=== PATIENT | male | born 1960 | race Caucasian/White ===

== ENCOUNTER 2017-07-23 10:40 | Emergency (ER) | payer OTHER, MEDICARE ==
[~2017-07-23] VITALS: Ht 172.7 cm; Wt 92.1 kg
[~2017-07-23 10:40] MED LIST: ALBU8.5H6 IH; ASPI325T8 PO; HYDR10TA2 PO; PANT20TA58 PO; PROP10TA PO; SERT20OR; SIMV10TA3 PO; Soma
[2017-07-23] MEDS ORDERED: MVI, ADULT NO.4 WITH VIT K 10 ML, FOLIC ACID SYRINGE for ER 1 MG, THIAMINE 100 MG in IV... IV SCH ×4 (11:00)
[2017-07-23 11:17] LABS: BASO # 0.1 x10^3/uL (0.0-0.2); BASO % 1 % (0-3); EOS # 0.1 x10^3/uL (0.0-0.7); EOS % 1 % (0-3); HEMATOCRIT 42.3 % (39.0-53.0); HEMOGLOBIN 14.3 g/dL (13.0-17.5); LYMPH # 1.8 x10^3/uL (1.0-4.8); LYMPH % 22 % (24-48); MEAN CORPUSCULAR HEMOGLOBIN 30 pg (25-35); MEAN CORPUSCULAR HGB CONC 34 g/dL (31-37); MEAN CORPUSCULAR VOLUME 89 fL (79-100); MONO # 0.8 x10^3/uL (0.0-1.1); MONO % 9 % (0-9); NEUT # 5.4 x10^3uL (1.8-7.7); NEUT % 67 % (31-73); PLATELET COUNT 180 x10^3/uL (140-400); RED BLOOD COUNT 4.77 x10^6/uL (4.30-5.70); RED CELL DISTRIBUTION WIDTH 17.2 % (11.5-14.5); WHITE BLOOD COUNT 8.1 x10^3/uL (4.0-11.0)
[2017-07-23] MEDS ORDERED: MECL25TA3 PO (11:21)
--- NOTE | 2017-07-23 11:21 | PHYS DOC ---
Past History Past Medical History: Anxiety, COPD, Depression, Other Past Surgical History: Other Smoking: Less than 1pk/day Alcohol Use: Heavy Drug Use: None Adult General Chief Complaint Chief Complaint: ALCOHOL INTOXICATION HPI HPI Patient is a 56-year-old male who was brought to the ED from home by EMS. EMS reports that the patient was at his home and his social service worker came to check on him and found him to be very intoxicated, called 911. EMS was transporting [facility] to the [facility] but they were diverted because the [facility] said they did not have any beds. The patient reports that today he is supposed to be checking into the domiciliary. He was supposed to be there at 10. Patient states that he has pain all over his body but he does not have any pain that is new or different today. He does not actually even have any complaints. He did not participate in the decision to come to the ED and he does not particularly want to be here. Patient gets his medical care at the [facility]. Review of Systems Review of Systems Patient is intoxicated and not cooperative and was not able to participate with review of systems answers. Current Medications Current Medications Current Medications Medications (Trade) Dose Ordered Sig/Ron Start Time Stop Time Status Last Admin Dose Admin Multivitamins/ Minerals 10 ml/ Folic Acid 1 mg/ Thiamine HCl 100 mg/Sodium Chloride 1,011.2 ml @ 1,000 mls/ hr Q1H 07/23/17 11:00 Allergies Allergies Allergies Coded Allergies Type Severity Reaction Last Updated Verified Penicillins Allergy 08/01/13 Yes Physical Exam Physical Exam Constitutional: Well developed, well nourished, no acute distress, behaves as if intoxicated, smells of alcohol, is alert, verbal, speech is a bit slurred consistent with alcohol. Vital signs are stable. HENT: Normocephalic, atraumatic, bilateral external ears normal, oropharynx moist, no oral exudates, nose normal. [] Eyes: conjunctiva normal, no discharge. [] Neck: Normal range of motion, no stridor. [] Cardiovascular:Heart rate regular rhythm, no murmur [] Lungs & Thorax: Bilateral breath sounds clear to auscultation [] Abdomen: Bowel sounds normal, soft, no tenderness, no masses, no pulsatile masses. [] Skin: Warm, dry, no erythema, no rash. [] Extremities: No tenderness, no cyanosis, no clubbing, ROM intact, no edema. [] Neurologic: Alert and oriented X 3, normal motor function, no focal deficits noted. [] Current Patient Data Vital Signs Vital Signs Date Time Temp Pulse Resp B/P (MAP) Pulse Ox O2 Delivery O2 Flow Rate FiO2 07/23/17 10:55 97.2 95 18 90 Room Air EKG EKG [] Radiology/Procedures Radiology/Procedures [] Course & Med Decision Making Course & Med Decision Making Pertinent Labs and Imaging studies reviewed. (See chart for details) 56-year-old male brought from home by EMS with the complaint of intoxication. Patient tells me "I just want to " but he denies actual suicidal ideation or plan, he just feels that there is nothing that he can do for himself. He has made arrangements to check into the [facility] today at 10:00 and wants to go do that. He believes that the kind of helping needs. He has been there before. Patient rested in the ED, got a banana bag, and ate a box lunch. He behaved cooperatively when he woke up. Although the patient is depressed I don't believe he has active suicidal ideation, he denies wanting to hurt himself but just feels like he doesn't have anything left to live for. I don't believe he is entirely safe to be discharged to home without anyone helping her observing him, but I do feel that he would be safe to be discharged to the [facility] as he has been there before and feels like he would be safe in that situation. I asked ED nursing staff to contact them and see if we can make arrangements for that. ED nursing staff did talk to the staff at the [facility]. They were expecting the patient to come today and are okay with him being sent over there at this time. The patient was ambulated and he was able to walk unassisted. I do believe the patient is stable for transfer to the [facility] to be checked in as his plan was. We will get the patient a taxi. [] Dragon Disclaimer Dragon Disclaimer This electronic medical record was generated, in whole or in part, using a voice recognition dictation system. Departure Departure: Impression: Primary Impression: Acute alcohol intoxication Disposition: HOME, SELF-CARE Condition: IMPROVED Referrals: NON,STAFF (PCP) Additional Instructions: You are being released to go check in to the [facility]. You have agreed to go straight there and the taxi and be admitted. SHANNAN RAMIREZ MD Jul 23, 2017 11:21
[2017-07-23 11:52] LABS: ALBUMIN 3.1 g/dL (3.4-5.0); ALK PHOS 131 U/L (46-116); ALT (SGPT) 38 U/L (16-63); ANION GAP 9 (6-14); AST (SGOT) 35 U/L (15-37); BLOOD UREA NITROGEN 10 mg/dL (8-26); CARBON DIOXIDE 31 mmol/L (21-32); CHLORIDE 101 mmol/L (98-107); CREATININE 0.8 mg/dL (0.7-1.3); DIRECT BILIRUBIN < 0.1 mg/dL (0.0-0.2); GFR 99.3; GLUCOSE 196 mg/dL (70-99); MAGNESIUM 1.8 mg/dL (1.8-2.4); POTASSIUM 3.5 mmol/L (3.5-5.1); SODIUM 141 mmol/L (136-145); TOTAL BILIRUBIN 0.2 mg/dL (0.2-1.0)
[2017-07-23 12:35] VITALS: BP 120/22
== END 2017-07-23 13:11 | disposition home or self-care (01) ==
LOC: ER 10:40
DX: F10.129 Alcohol abuse with intoxication, unspecified (principal); F41.9 Anxiety disorder, unspecified; J44.9 Chronic obstructive pulmonary disease, unspecified; F32.9 Major depressive disorder, single episode, unspecified; F17.200 Nicotine dependence, unspecified, uncomplicated; Z88.0 Allergy status to penicillin
CPT/HCPCS: 36415; 80048; 80076; 83735; 85025; 85610; 85730; 96365; 99284; G0480; J7030

== ENCOUNTER 2017-11-22 19:07 | Inpatient (IN) | payer MEDICARE, OTHER ==
[~2017-11-22] VITALS: Ht 172.7 cm; Wt 90.9 kg
[~2017-11-22 19:07] MED LIST changes: +MECL25TA3 PO; +SERT100T; -SERT20OR
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
[2017-11-22] MEDS ORDERED: FAMOTIDINE 20 MG/2 ML VIAL ONE (19:40)
--- NOTE | 2017-11-22 19:45 | EKG ---
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
[2017-11-22 19:48] LABS: BASO % 0 % (0-3); EOS # 0.1 x10^3/uL (0.0-0.7); EOS % 2 % (0-3); HEMATOCRIT 39.7 % (39.0-53.0); HEMOGLOBIN 13.3 g/dL (13.0-17.5); LYMPH # 2.2 x10^3/uL (1.0-4.8); LYMPH % 30 % (24-48); MEAN CORPUSCULAR HEMOGLOBIN 29 pg (25-35); MEAN CORPUSCULAR HGB CONC 34 g/dL (31-37); MEAN CORPUSCULAR VOLUME 86 fL (79-100); MONO # 0.4 x10^3/uL (0.0-1.1); MONO % 6 % (0-9); NEUT # 4.4 x10^3uL (1.8-7.7); NEUT % 62 % (31-73); PLATELET COUNT 219 x10^3/uL (140-400); RED BLOOD COUNT 4.59 x10^6/uL (4.30-5.70); RED CELL DISTRIBUTION WIDTH 15.7 % (11.5-14.5); WHITE BLOOD COUNT 7.1 x10^3/uL (4.0-11.0)
[2017-11-22 19:57] LABS: ALBUMIN 3.3 g/dL (3.4-5.0); CALCIUM 8.6 mg/dL (8.5-10.1); DIRECT BILIRUBIN 0.1 mg/dL (0.0-0.2); GFR 76.5; MAGNESIUM 1.8 mg/dL (1.8-2.4); TOTAL BILIRUBIN 0.4 mg/dL (0.2-1.0); TOTAL PROTEIN 7.2 g/dL (6.4-8.2)
[2017-11-22 20:00] LABS: ACETAMIN < 2 mcg/mL (10-30); ETHANOL 349 mg/dL (0-10); POTASSIUM 2.8 mmol/L (3.5-5.1); SALIC 4.4 mg/dL (2.8-20.0)
[2017-11-22] MEDS ORDERED: MVI, ADULT NO.4 WITH VIT K 10 ML, FOLIC ACID SYRINGE for ER 1 MG, THIAMINE 100 MG in IV... IV SCH ×4 (20:00)
[2017-11-22] MEDS ORDERED: OLANZapine IM 10 MG VIAL. IM ONE (20:00)
[2017-11-22] MEDS ORDERED: diphenhydrAMINE 50 MG/ML VIAL IV ONE ×2 (20:00)
[2017-11-22] MEDS ORDERED: TETANUS AND DIPHTHERIA TOX/PF 0.5 ML VIAL. VAX IM ONE (20:00)
[2017-11-22] MEDS ORDERED: POTASSIUM CHLORIDE 20 MEQ/15 ML ORAL LIQUID. PO STA (20:08)
[2017-11-22] MEDS ORDERED: THIAMINE 200 MG/2 ML VIAL. IV ONE (20:10)
[2017-11-22] MEDS ORDERED: MVI, ADULT NO.4 WITH VIT K 10 ML VIAL IV ONE (20:10)
[2017-11-22] MEDS ORDERED: FOLIC ACID 5 MG/ML SYRINGE for ER IV ONE (20:11)
[2017-11-22] MEDS ORDERED: LORazepam 2 MG/ML VIAL IV PRN (20:30)
[2017-11-22] MEDS ORDERED: MAGNESIUM HYDROXIDE 2,400 MG/30 ML ORAL.SUSP. PO ONE (20:30)
[2017-11-22] MEDS ORDERED: MIDAZOLAM HCL PF 5 MG/5 ML VIAL. ONE (20:54)
[2017-11-22] MEDS ORDERED: IV RINGERS SOLUTION,LACTATED 1,000 ML IV SCH (21:00)
[2017-11-22] MEDS ORDERED: FAMOTIDINE 20 MG/2 ML VIAL IVP ONE (21:00)
[2017-11-22] MEDS: LORazepam 1 MG TABLET PO SCH (21:00)
[2017-11-22] MEDS ORDERED: LORazepam 2 MG/ML VIAL IV ONE (21:15)
[2017-11-22] MEDS ORDERED: POTASSIUM CHLORIDE 20MEQ 100 ML IV ONE (21:51)
--- NOTE | 2017-11-22 21:52 | RAD ---
CT head and cervical spine without contrast History: Fall Technique: Noncontrast CT imaging was performed of the head and cervical spine. Multiplanar reconstruction images are submitted. Exposure: One or more of the following individualized dose reduction techniques were utilized for this examination: 1. Automated exposure control 2. Adjustment of the mA and/or kV according to patient size 3. Use of iterative reconstruction technique. Head CT Comparison: None Findings: No acute extra-axial or parenchymal hemorrhage is identified. There is no significant intra-axial mass effect, midline shift, or extra-axial fluid collection. There is small area of encephalomalacia in the right occipital lobe with cortical involvement likely due to previous infarct. There is also small focus of encephalomalacia with cortical involvement of the right frontal lobe. There is a larger area of encephalomalacia of the left parasagittal frontal parietal lobes and cingulate gyrus likely due to previous infarct. The lowry-white differentiation of the major vascular territories is preserved. Ventricular size is within normal limits. There is mild supratentorial involutional change. The mastoid air cells and the visualized paranasal sinuses are aerated. There is no significant focal calvarial abnormality. Impression: 1. There is no evidence of acute intracranial hemorrhage. There are foci of encephalomalacia as stated likely due to sequela of old infarcts. Cervical spine CT Comparison: None Findings: There is motion degradation. No convincing acute cervical spine fracture is identified allowing for motion. Vertebral body stature is maintained. There is negligible anterior spondylolisthesis C3-C4. Atlanto-axial distance is within normal limits, associated degenerative change. There is appropriate alignment of lateral masses of C1 relative to C2. Occipital condylar-C1 relationship is maintained. There is more advanced degenerative disc disease C6-7 and to lesser degree at C5-C6 and minimally at C3-4 and C4-5. There is multilevel cervical facet degenerative change. Disc osteophyte complex likely contributes to borderline/mild spinal stenosis C6-7. There is severe narrowing of the left C6-7 neural foramen mostly from uncovertebral degenerative change. There is some atherosclerotic calcification of the carotid arteries in the neck bilaterally. Impression: 1. There is some motion degradation, no convincing acute cervical spine fracture identified allowing for motion. 2. There is multilevel degenerative disease and spondylosis greatest C6-7, also likely borderline/mild spinal stenosis at this level. There is also severe narrowing of the left C6-7 neural foramen due to uncovertebral degenerative change. Electronically signed by: Agustin Chiu MD (11/22/2017 9:49 PM) [facility]
--- NOTE | 2017-11-22 22:04 | RAD ---
PORTABLE CHEST 1V Clinical History: Fall Technique: AP view of the chest was obtained at 11/22/2017 7:22 PM. Comparison: August 01, 2013. Findings: The heart is top normal limits in size. The pulmonary vasculature is normal. The lungs and pleural margins are clear. Impression: No evidence of an acute cardiopulmonary process. Electronically signed by: Jose Betancur III, MD (11/22/2017 10:01 PM) [facility]
--- NOTE | 2017-11-22 22:12 | RAD ---
CT maxillofacial without contrast History: Facial injury Axial helical images of the face were obtained without contrast. Axial and coronal reconstruction was performed. The nasal septum is mildly deviated to the right. The ostiomeatal complexes are narrow but patent. There is mild fluid within the ethmoid air cells and frontal sinus on the left.. The visualized osseous structures appear intact. The orbits appear normal. Impression: No acute bony abnormality. PQRS Compliance Statement: One or more of the following individualized dose reduction techniques were utilized for this examination: 1. Automated exposure control 2. Adjustment of the mA and/or kV according to patient size 3. Use of iterative reconstruction technique Electronically signed by: Jose Betancur III, MD (11/22/2017 10:09 PM) [facility]
[2017-11-22] MEDS ORDERED: POTASSIUM CHLORIDE 40 MEQ in IV RINGERS SOLUTION,LACTATED 1,000 ML IV SCH (22:30)
[2017-11-22 23:22] VITALS: BP 158/89
[2017-11-23 02:52] VITALS: BP 119/82
[2017-11-23] MEDS: IV RINGERS SOLUTION,LACTATED 1,000 ML IV SCH ×4 (03:01→22:45)
[2017-11-23 04:43] LABS: BARBITURATES NEG (NEG); BENZODIAZEPINES NEG (NEG); CANNABINOIDS NEG (NEG); COCAINE NEG (NEG); METHADONE NEG (NEG); OPIATES NEG (NEG); PHENCYCLIDINE NEG (NEG)
[2017-11-23 04:44] LABS: BACTERIA,URINE FEW /HPF (0-FEW); BILIRUBIN,URINE NEG (NEG); CLARITY,URINE CLEAR; COLOR,URINE YELLOW; GLUCOSE,URINE NEG (NEG); NITRITE,URINE NEG (NEG); RBC,URINE OCC /HPF (0-2); SQUAMOUS EPITHELIAL CELL,UR OCC /LPF; UROBILINOGEN,URINE 0.2 mg/dL (0.2 mg/dL); WBC,URINE OCC /HPF (0-4)
[2017-11-23 04:45] LABS: AMPHETAMINE/METHAMPHETAMINE NEG (NEG)
[2017-11-23 05:41] VITALS: BP 134/81
[2017-11-23] MEDS: POTASSIUM CHLORIDE 20 MEQ/15 ML ORAL LIQUID. PO SCH (05:57)
[2017-11-23 07:12] LABS: BASO % 0 % (0-3); EOS # 0.1 x10^3/uL (0.0-0.7); EOS % 1 % (0-3); HEMATOCRIT 36.9 % (39.0-53.0); HEMOGLOBIN 12.3 g/dL (13.0-17.5); LYMPH # 1.6 x10^3/uL (1.0-4.8); LYMPH % 20 % (24-48); MEAN CORPUSCULAR HEMOGLOBIN 29 pg (25-35); MEAN CORPUSCULAR HGB CONC 34 g/dL (31-37); MEAN CORPUSCULAR VOLUME 88 fL (79-100); MONO # 0.4 x10^3/uL (0.0-1.1); MONO % 5 % (0-9); NEUT # 5.9 x10^3uL (1.8-7.7); NEUT % 74 % (31-73); PLATELET COUNT 174 x10^3/uL (140-400); RED BLOOD COUNT 4.21 x10^6/uL (4.30-5.70); RED CELL DISTRIBUTION WIDTH 16.3 % (11.5-14.5)
[2017-11-23 07:16] LABS: GFR 76.5; POTASSIUM 3.5 mmol/L (3.5-5.1)
[2017-11-23] MEDS: LORazepam 1 MG TABLET PO SCH ×4 (08:56→20:44)
[2017-11-23] MEDS: FAMOTIDINE 20 MG TABLET PO SCH (08:56)
[2017-11-23] MEDS: MVI, ADULT NO.4 WITH VIT K 10 ML, FOLIC ACID 1 MG, THIAMINE 100 MG in IV NORMAL SALINE ... IV SCH ×4 (09:04)
[2017-11-23 11:19] VITALS: BP 143/73
[2017-11-23] MEDS ORDERED: LORazepam 1 MG TABLET PO PRN (12:45)
[2017-11-23] MEDS ORDERED: ENOXAPARIN 40 MG/0.4 ML SYRINGE. SQ SCH (13:00)
[2017-11-23] MEDS ORDERED: DEXTROSE 50% 25 GM / 50ML DISP.SYRIN. IV PRN (13:00)
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
[2017-11-23] MEDS ORDERED: PROP40TA PO (15:20)
[2017-11-23] MEDS ORDERED: ACET325T9 PO (15:20)
[2017-11-23] MEDS ORDERED: GABA800T2 PO (15:20)
[2017-11-23] MEDS ORDERED: APIX5TAB3 PO (15:20)
[2017-11-23] MEDS ORDERED: BUSP5TAB PO (15:20)
[2017-11-23] MEDS ORDERED: METF500T5 PO (15:20)
[2017-11-23] MEDS ORDERED: HYDR25CA75 PO (15:20)
[2017-11-23] MEDS ORDERED: ACETAMINOPHEN 325 MG TABLET PO PRN (15:45)
[2017-11-23 16:00] VITALS: BP 169/86
[2017-11-23] MEDS ORDERED: busPIRone 5 MG TABLET. PO SCH (16:00)
[2017-11-23] MEDS: INSULIN LISPRO 300 UNITS/3 ML INSULN.PEN. SQ SCH (17:00)
[2017-11-23] MEDS ORDERED: NON FORMULARY ITEM (Apixaban (Eliquis) 5 MG) PO SCH (18:00)
[2017-11-23 19:00] VITALS: BP 144/81
--- NOTE | 2017-11-23 20:27 | PDOC ---
Exam Note: [place] Note: Please also refer to the separate dictated note~for this date of service dictated separately.~Patient seen individually. Discussed the patient with Nursing staff reviewed the chart.~Reviewed interim history and current functioning. Reviewed vital signs,~Labs/ Radiology~and current medications noted below. Continue current treatment with the changes noted in the dictated addendum note Assessment: Vital Signs: Vital Signs Date Time Temp Pulse Resp B/P (MAP) Pulse Ox O2 Delivery O2 Flow Rate FiO2 11/23/17 19:00 100 20 144/81 (102) 90 11/23/17 16:00 98.7 Room Air 11/23/17 11:09 2.0 I&O Intake and Output 11/23/17 07:00 Intake Total 2055.1 ml Output Total 500 ml Balance 1555.1 ml Intake Oral 120 ml IV Total 1935.1 ml Output Urine Total 500 ml Labs: Laboratory Tests Test 11/23/17 04:00 11/23/17 06:16 Urine Collection Type Unknown Urine Color Yellow Urine Clarity Clear Urine pH 6.0 Urine Specific [facility] 1.015 Urine Protein 30 mg/dl (NEG-TRACE) Urine Glucose (UA) Neg mg/dL (NEG) Urine Ketones (Stick) Neg mg/dL (NEG) Urine Blood Trace (NEG) Urine Nitrite Neg (NEG) Urine Bilirubin Neg (NEG) Urine Urobilinogen Dipstick 0.2 mg/dL (0.2 mg/dL) Urine Leukocyte Esterase Neg (NEG) Urine RBC Occ /HPF (0-2) Urine WBC Occ /HPF (0-4) Urine Squamous Epithelial Cells Occ /LPF Urine Bacteria Few /HPF (0-FEW) Urine Mucus Slight /LPF Urine Opiates Screen Neg (NEG) Urine Methadone Screen Neg (NEG) Urine Barbiturates Neg (NEG) Urine Phencyclidine Screen Neg (NEG) Urine Amphetamine/Methamphetamine Neg (NEG) Urine Benzodiazepines Screen Neg (NEG) Urine Cocaine Screen Neg (NEG) Urine Cannabinoids Screen Neg (NEG) Urine Ethyl Alcohol Pos (NEG) White Blood Count 8.0 x10^3/uL (4.0-11.0) Red Blood Count 4.21 x10^6/uL (4.30-5.70) L Hemoglobin 12.3 g/dL (13.0-17.5) L Hematocrit 36.9 % (39.0-53.0) L Mean Corpuscular Volume 88 fL (79-100) Mean Corpuscular Hemoglobin 29 pg (25-35) Mean Corpuscular Hemoglobin Concent 34 g/dL (31-37) Red Cell Distribution Width 16.3 % (11.5-14.5) H Platelet Count 174 x10^3/uL (140-400) Neutrophils (%) (Auto) 74 % (31-73) H Lymphocytes (%) (Auto) 20 % (24-48) L Monocytes (%) (Auto) 5 % (0-9) Eosinophils (%) (Auto) 1 % (0-3) Basophils (%) (Auto) 0 % (0-3) Neutrophils # (Auto) 5.9 x10^3uL (1.8-7.7) Lymphocytes # (Auto) 1.6 x10^3/uL (1.0-4.8) Monocytes # (Auto) 0.4 x10^3/uL (0.0-1.1) Eosinophils # (Auto) 0.1 x10^3/uL (0.0-0.7) Basophils # (Auto) 0.0 x10^3/uL (0.0-0.2) Sodium Level 140 mmol/L (136-145) Potassium Level 3.5 mmol/L (3.5-5.1) Chloride Level 103 mmol/L (98-107) Carbon Dioxide Level 29 mmol/L (21-32) Anion Gap 8 (6-14) Blood Urea Nitrogen 9 mg/dL (8-26) Creatinine 1.0 mg/dL (0.7-1.3) Estimated GFR (Cockcroft-Gault) 76.5 Glucose Level 162 mg/dL (70-99) H Calcium Level 8.0 mg/dL (8.5-10.1) L Current Medications: Meds: Current Medications Multivitamins/ Minerals 10 ml/ Folic Acid 1 mg/ Thiamine HCl 100 mg/Sodium Chloride 1,011.2 ml @ 1,000 mls/ hr Q1H IV Last administered on 11/22/17at 20:00 ; Start 11/22/17 at 20:00; Stop 11/22/17 at 20:23; Status DC Diphenhydramine HCl (Benadryl) 50 mg 1X ONCE IV Last administered on 11/22/17at 20:23; Start 11/22/17 at 20:00; Stop 11/22/17 at 20:01; Status DC Tetanus/ Diphtheria Toxoids Adsorbed (Tenivac Vial) 0.5 ml ONCE ONCE VAX IM Last administered on 11/22/17at 20:22; Start 11/22/17 at 20:00; Stop 11/22/17 at 20: 01; Status DC Diphenhydramine HCl (Benadryl) 50 mg 1X ONCE IV ; Start 11/22/17 at 20:00; Stop 11/22/17 at 20:01; Status DC Olanzapine (ZyPREXA IM) 10 mg 1X ONCE IM Last administered on 11/22/17at 20:20; Start 11/22/17 at 20:00; Stop 11/22/17 at 20:01; Status DC Multivitamins/ Minerals 10 ml/ Folic Acid 1 mg/ Thiamine HCl 100 mg/Sodium Chloride 1,011.1 ml @ 1,000 mls/ hr DAILY IV Last administered on 11/23/17at 09: 04; Start 11/23/17 at 09:00; Stop 11/25/17 at 10:01 Lactated Ringer's 1,000 ml @ 160 mls/hr Q6H15M IV ; Start 11/22/17 at 21:00; Status Cancel Famotidine (Pepcid Vial) 20 mg 1X ONCE IVP Last administered on 11/22/17at 20:19 ; Start 11/22/17 at 21:00; Stop 11/22/17 at 21:01; Status DC Potassium Chloride (KCl Oral Soln) 40 meq 1X STAT PO ; Start 11/22/17 at 20:08; Stop 11/22/17 at 20:18; Status DC Potassium Chloride (KCl Oral Soln) 40 meq DAILY06 PO Last administered on at 05:57; Start 11/23/17 at 06:00 Famotidine (Pepcid) 20 mg DAILY PO Last administered on 11/23/17at 08:56; Start 11/23/17 at 09:00 Magnesium Hydroxide (Milk Of Magnesia) 2,400 mg 1X ONCE PO ; Start 11/22/17 at 20:30; Stop 11/22/17 at 20:31; Status DC Lorazepam (Ativan) 1 mg QID PO Last administered on 11/23/17at 17:24; Start at 21:00 Lorazepam (Ativan) 2 mg 1X PRN PRN IV seizure; Start 11/22/17 at 20:30; Stop 11/23/17 at 12:46; Status DC Lorazepam (Ativan) 2 mg 1X ONCE IV Last administered on 11/22/17at 21:02; Start 11/22/17 at 21:15; Stop 11/22/17 at 21:16; Status DC Potassium Chloride 40 meq/ Lactated Ringer's 1,020 ml @ 160 mls/hr Q6H23M IV Last administered on 11/22/17at 23:25; Start 11/22/17 at 22:30; Stop 11/23/17 at 04: 52; Status DC Lactated Ringer's 1,000 ml @ 160 mls/hr Q6H15M IV Last administered on at 14:00; Start 11/23/17 at 04:00 Multivitamins/ Minerals 10 ml/ Thiamine HCl 100 mg/Folic Acid 1 mg/Sodium Chloride 1,011.2 ml @ 100 mls/ hr DAILY IV ; Start 11/24/17 at 09:00; Stop 11/29 at 08:59; Status UNV Chlordiazepoxide (Librium) 50 mg PRN Q1HR PRN PO For CIWA 8-14; Start 11/23/17 at 12:45 Lorazepam (Ativan) 4 mg PRN Q1HR PRN PO For CIWA 8-14; Start 11/23/17 at 12:45 Lorazepam (Ativan) 2 mg PRN Q1HR PRN IV For CIWA 8-14; Start 11/23/17 at 12:45 Enoxaparin Sodium (Lovenox 40mg Syringe) 40 mg Q24H SQ Last administered on 11/23at 14:00; Start 11/23/17 at 13:00; Stop 11/23/17 at 18:14; Status DC Insulin Human Lispro (HumaLOG) 0-5 UNITS TIDWMEALS SQ ; Start 11/23/17 at 17:00 Dextrose 12.5 gm PRN Q15MIN PRN IV SEE COMMENTS; Start 11/23/17 at 13:00 Acetaminophen (Tylenol) 650 mg PRN Q4HRS PRN PO PAIN / TEMP; Start 11/23/17 at 15:45 Non-Formulary Medication (Apixaban (Eliquis)) 5 mg QEVNG PO ; Start 11/23/17 at 18:00; Stop 11/23/17 at 18:00; Status DC Buspirone HCl (Buspar) 5 mg BID PO ; Start 11/23/17 at 16:00; Stop 11/23/17 at 16: 00; Status DC Gabapentin (Neurontin) 800 mg BID PO ; Start 11/23/17 at 21:00 Hydroxyzine Pamoate (Vistaril) 25 mg PRN TID PRN PO ANXIETY/AGITATION; Start at 15:45 Metformin HCl (Glucophage) 500 mg QEVNG PO ; Start 11/23/17 at 18:00 Propranolol HCl (Inderal) 40 mg BID PO ; Start 11/23/17 at 21:00 Buspirone HCl (Buspar) 5 mg BID PO ; Start 11/23/17 at 21:00 Apixaban (Eliquis) 5 mg BID PO ; Start 11/24/17 at 09:00 Active Scripts Active Reported Propranolol Hcl 40 Mg Tablet 40 Mg PO BID Metformin Hcl 500 Mg Tablet 500 Mg PO QEVNG Hydroxyzine Pamoate 25 Mg Capsule 25 Mg PO PRN TID PRN Gabapentin 800 Mg Tablet 800 Mg PO BID Buspirone Hcl 5 Mg Tablet 5 Mg PO BID Tylenol (Acetaminophen) 325 Mg Tablet 650 Mg PO PRN Q4HRS PRN [Soma] I have reviewed the current psychotropics carefully including drug interactions. Risk benefit ratio favors no change other than as noted in my dictated progress note. Diagnosis: Problems: (1) Alcohol dependence (2) Anxiety disorder (3) Major depressive disorder, recurrent episode (4) Suicidal ideations CALLIE YANES MD Nov 23, 2017 20:27
[2017-11-23] MEDS: busPIRone 5 MG TABLET. PO SCH (20:44)
[2017-11-23] MEDS: GABAPENTIN 400 MG CAPSULE. PO SCH (20:44)
[2017-11-23] MEDS: metFORMIN 500 MG TABLET PO SCH (20:44)
[2017-11-23] MEDS: PROPRANOLOL 20 MG TABLET. PO SCH (20:44)
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
[2017-11-23] MEDS: ONDANSETRON PF 4 MG/2 ML VIAL. IV PRN (21:21)
[2017-11-23 23:00] VITALS: BP 144/81
[2017-11-24] MEDS: hydrOXYzine PAMOATE 25 MG CAPSULE PO PRN ×2 (01:08→19:58)
[2017-11-24] MEDS: LORazepam 2 MG/ML VIAL IV PRN ×13 (01:56→23:27)
[2017-11-24] MEDS: chlordiazePOXIDE HCL 25 MG CAPSULE PO PRN ×6 (02:38→17:37)
[2017-11-24] MEDS: IV RINGERS SOLUTION,LACTATED 1,000 ML IV SCH ×2 (05:00→11:15)
[2017-11-24] MEDS ORDERED: HALOPERIDOL LACT 5 MG/ML VIAL. ONE ×2 (05:55→16:09)
[2017-11-24 06:00] VITALS: BP_SYST 179; BP_SYST 190; BP_DIAS 88; BP_DIAS 96
[2017-11-24] MEDS ORDERED: HALOPERIDOL LACT 5 MG/ML VIAL. IVP ONE (06:30)
[2017-11-24 06:33] LABS: HEMATOCRIT 34.6 % (39.0-53.0); HEMOGLOBIN 11.6 g/dL (13.0-17.5); RED CELL DISTRIBUTION WIDTH 15.6 % (11.5-14.5); WHITE BLOOD COUNT 6.1 x10^3/uL (4.0-11.0)
[2017-11-24 07:04] LABS: ALBUMIN/GLOBULIN RATIO 0.9 (1.0-1.7); CREATININE 0.9 mg/dL (0.7-1.3); GFR 86.4; POTASSIUM 3.4 mmol/L (3.5-5.1); TOTAL PROTEIN 6.2 g/dL (6.4-8.2)
[2017-11-24] MEDS: INSULIN LISPRO 300 UNITS/3 ML INSULN.PEN. SQ SCH ×3 (08:00→17:52)
[2017-11-24] MEDS: APIXABAN 5 MG TABLET. PO SCH ×2 (08:47→19:57)
[2017-11-24] MEDS: FAMOTIDINE 20 MG TABLET PO SCH (08:47)
[2017-11-24] MEDS: busPIRone 5 MG TABLET. PO SCH ×2 (08:47→19:59)
[2017-11-24] MEDS: LORazepam 1 MG TABLET PO SCH ×4 (08:47→20:00)
[2017-11-24] MEDS: GABAPENTIN 400 MG CAPSULE. PO SCH ×2 (08:48→19:58)
[2017-11-24] MEDS: NICOTINE 21MG PATCH. TD SCH (08:49)
[2017-11-24 08:56] VITALS: BP 141/87
[2017-11-24] MEDS: PROPRANOLOL 20 MG TABLET. PO SCH ×2 (08:56→20:01)
[2017-11-24] MEDS ORDERED: MVI, ADULT NO.4 WITH VIT K 10 ML, THIAMINE 100 MG, FOLIC ACID 1 MG in IV NORMAL SALINE ... IV SCH ×4 (09:00)
[2017-11-24] MEDS: MVI, ADULT NO.4 WITH VIT K 10 ML, FOLIC ACID 1 MG, THIAMINE 100 MG in IV NORMAL SALINE ... IV SCH ×4 (09:00)
[2017-11-24] MEDS: POTASSIUM CHLORIDE 20 MEQ/15 ML ORAL LIQUID. PO SCH (11:39)
[2017-11-24] MEDS ORDERED: MAG HYDROX/AL HYDROX/SIMETH 30 ML ORAL.SUSP ONE (12:32)
[2017-11-24 12:33] VITALS: BP 180/77
[2017-11-24] MEDS: MAG HYDROX/AL HYDROX/SIMETH 30 ML ORAL.SUSP PO PRN (12:38)
[2017-11-24] MEDS: POTASSIUM CL 40MEQ D5-0.45NACL 1,000 ML IV SCH ×2 (13:59→23:26)
[2017-11-24] MEDS ORDERED: chlordiazePOXIDE HCL 25 MG CAPSULE PO PRN (14:00)
[2017-11-24 14:56] VITALS: BP 167/97
[2017-11-24] MEDS ORDERED: HALOPERIDOL LACT 5 MG/ML VIAL. IVP PRN (16:30)
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
[2017-11-24] MEDS: metFORMIN 500 MG TABLET PO SCH (17:40)
[2017-11-24 20:11] VITALS: BP 149/91
[2017-11-24] MEDS ORDERED: IPRATRPIUM/ALBUTEROL 0.5/2.5MG 3 ML NEBU. NEB ONE (21:30)
[2017-11-24 22:58] VITALS: BP 146/94
[2017-11-24] MEDS: HALOPERIDOL LACT 5 MG/ML VIAL. IVP PRN (23:26)
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
[2017-11-25] MEDS: POTASSIUM CHLORIDE 20 MEQ/15 ML ORAL LIQUID. PO SCH (05:30)
[2017-11-25 06:26] LABS: ALBUMIN 2.8 g/dL (3.4-5.0); ALBUMIN/GLOBULIN RATIO 0.8 (1.0-1.7); CALCIUM 8.4 mg/dL (8.5-10.1); CREATININE 0.8 mg/dL (0.7-1.3); GFR 98.9; POTASSIUM 3.9 mmol/L (3.5-5.1); TOTAL BILIRUBIN 0.5 mg/dL (0.2-1.0); TOTAL PROTEIN 6.5 g/dL (6.4-8.2)
[2017-11-25 06:29] VITALS: BP 157/114
[2017-11-25] MEDS ORDERED: cloNIDine HCL 0.1 MG TABLET PO PRN (06:45)
[2017-11-25] MEDS: GABAPENTIN 400 MG CAPSULE. PO SCH ×2 (07:49→20:39)
[2017-11-25] MEDS: LORazepam 1 MG TABLET PO SCH ×4 (07:49→20:39)
[2017-11-25] MEDS: busPIRone 5 MG TABLET. PO SCH ×2 (07:49→20:39)
[2017-11-25] MEDS: FAMOTIDINE 20 MG TABLET PO SCH (07:49)
[2017-11-25] MEDS: PROPRANOLOL 20 MG TABLET. PO SCH ×2 (07:49→20:39)
[2017-11-25] MEDS: NICOTINE 21MG PATCH. TD SCH (07:50)
[2017-11-25] MEDS: APIXABAN 5 MG TABLET. PO SCH ×2 (07:50→20:39)
[2017-11-25] MEDS: INSULIN LISPRO 300 UNITS/3 ML INSULN.PEN. SQ SCH ×3 (07:53→16:57)
[2017-11-25] MEDS ORDERED: IPRATRPIUM/ALBUTEROL 0.5/2.5MG 3 ML NEBU. ONE (08:22)
[2017-11-25] MEDS: IPRATRPIUM/ALBUTEROL 0.5/2.5MG 3 ML NEBU. NEB SCH ×4 (08:26→20:38)
[2017-11-25] MEDS: chlordiazePOXIDE HCL 25 MG CAPSULE PO PRN (09:25)
--- NOTE | 2017-11-25 09:52 | RAD ---
Portable chest, 11/25/2017: HISTORY: Wheezing, shortness of breath Comparison is made to a study from 11/22/2017. The heart size and pulmonary vascularity are normal. No pulmonary infiltrate is seen. There is no evidence of pleural fluid. IMPRESSION: No acute cardiopulmonary abnormality is detected. Electronically signed by: Jose Harvey MD (11/25/2017 9:49 AM) [facility]
[2017-11-25 10:53] VITALS: BP 153/87
[2017-11-25 14:51] VITALS: BP 141/87
[2017-11-25] MEDS: POTASSIUM CL 40MEQ D5-0.45NACL 1,000 ML IV SCH (16:23)
[2017-11-25] MEDS: metFORMIN 500 MG TABLET PO SCH (16:58)
[2017-11-25] MEDS: LORazepam 2 MG/ML VIAL IV PRN (17:44)
[2017-11-25] MEDS: HALOPERIDOL LACT 5 MG/ML VIAL. IVP PRN (18:00)
--- NOTE | 2017-11-25 18:35 | PDOC ---
Exam Note: [place] Note: Please also refer to the separate dictated note~for this date of service dictated separately.~Patient seen individually. Discussed the patient with Nursing staff reviewed the chart.~Reviewed interim history and current functioning. Reviewed vital signs,~Labs/ Radiology~and current medications noted below. Continue current treatment with the changes noted in the dictated addendum note Assessment: Vital Signs: Vital Signs Date Time Temp Pulse Resp B/P (MAP) Pulse Ox O2 Delivery O2 Flow Rate FiO2 11/25/17 15:18 91 Nasal Cannula 2.5 11/25/17 14:51 98.4 96 22 141/87 (105) I&O Intake and Output 11/25/17 07:00 Intake Total 3245 ml Output Total 500 ml Balance 2745 ml Intake Oral 120 ml IV Total 3125 ml Output Urine Total 500 ml # Voids 3 # Bowel Movements 1 Labs: Laboratory Tests Test 11/24/17 20:29 11/25/17 06:00 11/25/17 13:57 11/25/17 16:27 Glucose (Fingerstick) 192 mg/dL (70-99) H 182 mg/dL (70-99) H 167 mg/dL (70-99) H Sodium Level 144 mmol/L (136-145) Potassium Level 3.9 mmol/L (3.5-5.1) Chloride Level 107 mmol/L (98-107) Carbon Dioxide Level 32 mmol/L (21-32) Anion Gap 5 (6-14) L Blood Urea Nitrogen 3 mg/dL (8-26) L Creatinine 0.8 mg/dL (0.7-1.3) Estimated GFR (Cockcroft-Gault) 98.9 BUN/Creatinine Ratio 4 (6-20) L Glucose Level 186 mg/dL (70-99) H Calcium Level 8.4 mg/dL (8.5-10.1) L Total Bilirubin 0.5 mg/dL (0.2-1.0) Aspartate Amino Transferase (AST) 33 U/L (15-37) Alanine Aminotransferase (ALT) 37 U/L (16-63) Alkaline Phosphatase 121 U/L (46-116) H Creatine Kinase 211 U/L (39-308) Total Protein 6.5 g/dL (6.4-8.2) Albumin 2.8 g/dL (3.4-5.0) L Albumin/Globulin Ratio 0.8 (1.0-1.7) L Current Medications: Meds: Current Medications Multivitamins/ Minerals 10 ml/ Folic Acid 1 mg/ Thiamine HCl 100 mg/Sodium Chloride 1,011.2 ml @ 1,000 mls/ hr Q1H IV Last administered on 11/22/17at 20:00 ; Start 11/22/17 at 20:00; Stop 11/22/17 at 20:23; Status DC Diphenhydramine HCl (Benadryl) 50 mg 1X ONCE IV Last administered on 11/22/17at 20:23; Start 11/22/17 at 20:00; Stop 11/22/17 at 20:01; Status DC Tetanus/ Diphtheria Toxoids Adsorbed (Tenivac Vial) 0.5 ml ONCE ONCE VAX IM Last administered on 11/22/17at 20:22; Start 11/22/17 at 20:00; Stop 11/22/17 at 20: 01; Status DC Diphenhydramine HCl (Benadryl) 50 mg 1X ONCE IV ; Start 11/22/17 at 20:00; Stop 11/22/17 at 20:01; Status DC Olanzapine (ZyPREXA IM) 10 mg 1X ONCE IM Last administered on 11/22/17at 20:20; Start 11/22/17 at 20:00; Stop 11/22/17 at 20:01; Status DC Multivitamins/ Minerals 10 ml/ Folic Acid 1 mg/ Thiamine HCl 100 mg/Sodium Chloride 1,011.1 ml @ 1,000 mls/ hr DAILY IV Last administered on 11/23/17at 09: 04; Start 11/23/17 at 09:00; Stop 11/24/17 at 13:50; Status DC Lactated Ringer's 1,000 ml @ 160 mls/hr Q6H15M IV ; Start 11/22/17 at 21:00; Status Cancel Famotidine (Pepcid Vial) 20 mg 1X ONCE IVP Last administered on 11/22/17at 20:19 ; Start 11/22/17 at 21:00; Stop 11/22/17 at 21:01; Status DC Potassium Chloride (KCl Oral Soln) 40 meq 1X STAT PO ; Start 11/22/17 at 20:08; Stop 11/22/17 at 20:18; Status DC Potassium Chloride (KCl Oral Soln) 40 meq DAILY06 PO Last administered on at 05:30; Start 11/23/17 at 06:00 Famotidine (Pepcid) 20 mg DAILY PO Last administered on 11/25/17at 07:49; Start 11/23/17 at 09:00 Magnesium Hydroxide (Milk Of Magnesia) 2,400 mg 1X ONCE PO ; Start 11/22/17 at 20:30; Stop 11/22/17 at 20:31; Status DC Lorazepam (Ativan) 1 mg QID PO Last administered on 11/25/17at 16:46; Start 11/22 at 21:00 Lorazepam (Ativan) 2 mg 1X PRN PRN IV seizure; Start 11/22/17 at 20:30; Stop 11/23/17 at 12:46; Status DC Lorazepam (Ativan) 2 mg 1X ONCE IV Last administered on 11/22/17at 21:02; Start 11/22/17 at 21:15; Stop 11/22/17 at 21:16; Status DC Potassium Chloride 40 meq/ Lactated Ringer's 1,020 ml @ 160 mls/hr Q6H23M IV Last administered on 11/22/17at 23:25; Start 11/22/17 at 22:30; Stop 11/23/17 at 04: 52; Status DC Lactated Ringer's 1,000 ml @ 160 mls/hr Q6H15M IV Last administered on at 14:00; Start 11/23/17 at 04:00; Stop 11/24/17 at 13:50; Status DC Multivitamins/ Minerals 10 ml/ Thiamine HCl 100 mg/Folic Acid 1 mg/Sodium Chloride 1,011.2 ml @ 100 mls/ hr DAILY IV ; Start 11/24/17 at 09:00; Stop 11/29 at 08:59; Status UNV Chlordiazepoxide (Librium) 50 mg PRN Q1HR PRN PO For CIWA 8-14 Last administered on 11/25/17at 09:25; Start 11/23/17 at 12:45 Lorazepam (Ativan) 4 mg PRN Q1HR PRN PO For CIWA 8-14 Last administered on at 00:04; Start 11/23/17 at 12:45 Lorazepam (Ativan) 2 mg PRN Q1HR PRN IV For CIWA 8-14 Last administered on at 23:27; Start 11/23/17 at 12:45 Enoxaparin Sodium (Lovenox 40mg Syringe) 40 mg Q24H SQ Last administered on 11/23at 14:00; Start 11/23/17 at 13:00; Stop 11/23/17 at 18:14; Status DC Insulin Human Lispro (HumaLOG) 0-5 UNITS TIDWMEALS SQ Last administered on 11/25 16:57; Start 11/23/17 at 17:00 Dextrose 12.5 gm PRN Q15MIN PRN IV SEE COMMENTS; Start 11/23/17 at 13:00 Acetaminophen (Tylenol) 650 mg PRN Q4HRS PRN PO PAIN / TEMP Last administered on 11/25/17at 15:49; Start 11/23/17 at 15:45 Non-Formulary Medication (Apixaban (Eliquis)) 5 mg QEVNG PO ; Start 11/23/17 at 18:00; Stop 11/23/17 at 18:00; Status DC Buspirone HCl (Buspar) 5 mg BID PO ; Start 11/23/17 at 16:00; Stop 11/23/17 at 16: 00; Status DC Gabapentin (Neurontin) 800 mg BID PO Last administered on 11/25/17at 07:49; Start 11/23/17 at 21:00 Hydroxyzine Pamoate (Vistaril) 25 mg PRN TID PRN PO ANXIETY/AGITATION Last administered on 11/24/17 19:58; Start 11/23/17 at 15:45 Metformin HCl (Glucophage) 500 mg QEVNG PO Last administered on 11/25/17 16:58 ; Start 11/23/17 at 18:00 Propranolol HCl (Inderal) 40 mg BID PO Last administered on 11/25/17 07:49; Start 11/23/17 at 21:00 Buspirone HCl (Buspar) 5 mg BID PO Last administered on 11/25/17 07:49; Start 11/23/17 at 21:00 Apixaban (Eliquis) 5 mg BID PO Last administered on 11/25/17 07:50; Start 11/24 at 09:00 Ondansetron HCl (Zofran) 4 mg PRN Q6HRS PRN IV NAUSEA/VOMITING Last administered on 11/23/17 21:21; Start 11/23/17 at 21:15 Haloperidol Lactate (Haldol) 5 mg 1X ONCE IVP Last administered on 11/24/17 06 :01; Start 11/24/17 at 06:30; Stop 11/24/17 at 06:31; Status DC Nicotine (Nicoderm Cq 21mg) 1 patch DAILY TD Last administered on 11/25/17 07: 50; Start 11/24/17 at 09:00 Lorazepam (Ativan) 4 mg PRN Q1HR PRN IV For CIWA 15 or greater Last administered on 11/25/17 17:44; Start 11/24/17 at 12:15 Al Hydroxide/Mg Hydroxide (Mylanta Plus Xs) 30 ml PRN Q2HR PRN PO DYSPEPSIA Last administered on 11/24/17at 12:38; Start 11/24/17 at 12:45 Potassium Chloride/Dextrose/ Sod Cl 1,000 ml @ 75 mls/hr [id number] IV Last administered on 11/25/17 16:23; Start 11/24/17 at 13:30 Chlordiazepoxide (Librium) 100 mg PRN Q4HRS PRN PO ALCOHOL WITHDRAWAL; Start at 14:00 Haloperidol Lactate (Haldol) 5 mg PRN Q4HRS PRN IVP AGITATION; Start 11/24/17 at 16:30; Stop 11/24/17 at 18:34; Status DC Olanzapine (ZyPREXA ZYDIS) 5 mg PRN Q2HR PRN PO DELIRIUM Last administered on 17:00; Start 11/24/17 at 16:30 Haloperidol Lactate (Haldol) 5 mg PRN Q6HRS PRN IVP AGITATION Last administered on 11/25/17 18:00; Start 11/24/17 at 18:45 Albuterol/ Ipratropium (Duoneb) 3 ml 1X ONCE NEB Last administered on 21:29; Start 11/24/17 at 21:30; Stop 11/24/17 at 21:31; Status DC Clonidine HCl (Catapres) 0.1 mg PRN Q1HR PRN PO SBP>180 OR DBP>100, MR X 3; Start 11/25/17 at 06:45 Albuterol/ Ipratropium (Duoneb) 3 ml RTQID NEB Last administered on 11/25/17at 15:18; Start 11/25/17 at 08:15 Active Scripts Active Reported Propranolol Hcl 40 Mg Tablet 40 Mg PO BID Metformin Hcl 500 Mg Tablet 500 Mg PO QEVNG Hydroxyzine Pamoate 25 Mg Capsule 25 Mg PO PRN TID PRN Gabapentin 800 Mg Tablet 800 Mg PO BID Buspirone Hcl 5 Mg Tablet 5 Mg PO BID Tylenol (Acetaminophen) 325 Mg Tablet 650 Mg PO PRN Q4HRS PRN [Soma] I have reviewed the current psychotropics carefully including drug interactions. Risk benefit ratio favors no change other than as noted in my dictated progress note. Diagnosis: Problems: (1) Alcohol withdrawal syndrome (2) Alcohol withdrawal with delirium in inpatient treatment (3) Major depressive disorder, recurrent episode (4) Anxiety disorder (5) Alcohol dependence (6) Suicidal ideations CALLIE YANES MD Nov 25, 2017 18:35
[2017-11-25 19:50] VITALS: BP 166/89
[2017-11-25] MEDS: hydrOXYzine PAMOATE 25 MG CAPSULE PO PRN (20:39)
[2017-11-25] MEDS: ONDANSETRON PF 4 MG/2 ML VIAL. IV PRN (21:36)
--- NOTE | 2017-11-25 22:52 | PN ---
DATE: 11/25/2017 SUBJECTIVE: The patient is resting slightly propped up in bed, in no apparent distress. He continued to be restless, agitated, hallucinating, has been on alcohol withdrawal protocol requiring large amounts of Ativan and Haldol. PHYSICAL EXAMINATION: GENERAL: When I examined him this morning, he looked well and was slightly pale, but no jaundice, cyanosis, or thyromegaly. No jugular venous distension. No lower limb edema. VITAL SIGNS: His heart rate was 63, blood pressure 157/114, temperature was 97.7, respiratory rate was 16, and oxygen saturation was 96%. HEAD, EYES, EARS, NOSE AND THROAT: Normocephalic, atraumatic. NECK: Supple. HEART: Showed normal first and second heart sounds with no gallop, rub or murmur. CHEST: Clear to auscultation. No crepitation or rhonchi. ABDOMEN: Distended, soft, nontender. No guarding or rigidity. No organomegaly. Hernial orifice intact. Bowel sounds normal. NEUROLOGIC: He is sleepy, but arousable. All his cranial nerves are intact. He moves extremities without difficulty. His intake over the last 24 hours was 1850, output was 500. LABORATORY DATA: As of this morning showed a white cell count 6000, hemoglobin 12, hematocrit 35, MCV 87 and platelet count of 135,000. His chemistry showed a serum sodium 144, potassium 3.9, chloride 107, bicarbonate 32, anion gap of 5, BUN 3, creatinine 0.8, estimated GFR was 98 mL per minute, his glucose 186, calcium was 8.4. Total bilirubin, AST, ALT normal. Alkaline phosphatase slightly elevated. CK was 111. Total protein 6.5, albumin was 2.8. ASSESSMENT: 1. Alcohol withdrawal and delirium tremens which he is on alcohol withdrawal protocol. 2. Dehydration, improved. 3. Hypokalemia, resolved. His potassium is 3.9. 4. Type 2 diabetes, reasonably controlled. PLAN: To continue with alcohol withdrawal protocol. We did consult Dr. Freitas and basically he recommended to continue the detoxification protocol and he also recommended that might benefit from being admitted to alcohol rehab program or [facility]. TAN LARA MD DR: TRACY/bahman JOB#: [id number] / [id number]
--- NOTE | 2017-11-26 00:22 | PN ---
DATE: 11/24/2017 This is a late entry for 11/24/2017 and covers elements not covered in my initial note. SUBJECTIVE: I met with the patient in the evening. Discussed with nursing staff, reviewed the chart. The patient has had increasing symptoms of alcohol withdrawal/delirium tremens. He has been getting fairly significant dosages of benzodiazepines, Ativan and Librium to counteract this and I had considered adding Tegretol or Trileptal as well, but after a careful review of his entire dosage of benzodiazepines received in a 24-hour period and patient's aspiration risk, the risk/benefit ratio favors continuing treatment on the benzodiazepines and using the Zyprexa p.r.n. as is being done for overt psychotic symptoms. He has been thrashing his arms and legs in the bed and nursing staff has been sitting with him. He is unable to respond to review of systems, questions, did not seem to recognize me either, quite delirious. MENTAL STATUS EXAM: Insight, judgment, recent and remote memory, attention, concentration, fund of knowledge poor, consistent with his diagnosis. IMPRESSION: Alcohol withdrawal syndrome/delirium tremens, alcohol abuse, dependence. Rest of diagnoses unchanged. PLAN: Continue with the detox protocol and make further adjustments depending on his progress. I had called the nursing staff back around 11:00 p.m. about 3 hours after I had initially seen the patient evening of 11/24/2017 and reviewed the patient's progress and at that time decided to wait to start the Tegretol or Trileptal for a later time. CALLIE YANES MD DR: CRISTIANO/bahman JOB#: [id number] / [id number]
[2017-11-26 01:01] VITALS: BP 162/90
[2017-11-26] MEDS: IPRATRPIUM/ALBUTEROL 0.5/2.5MG 3 ML NEBU. NEB SCH ×4 (05:36→20:08)
[2017-11-26] MEDS: POTASSIUM CL 40MEQ D5-0.45NACL 1,000 ML IV SCH ×2 (05:53→17:00)
[2017-11-26] MEDS: POTASSIUM CHLORIDE 20 MEQ/15 ML ORAL LIQUID. PO SCH (06:00)
[2017-11-26 06:33] VITALS: BP 159/88
[2017-11-26 06:43] LABS: HEMATOCRIT 38.3 % (39.0-53.0); HEMOGLOBIN 12.6 g/dL (13.0-17.5); RED BLOOD COUNT 4.33 x10^6/uL (4.30-5.70); RED CELL DISTRIBUTION WIDTH 15.9 % (11.5-14.5); WHITE BLOOD COUNT 7.9 x10^3/uL (4.0-11.0)
[2017-11-26 06:47] LABS: CALCIUM 8.8 mg/dL (8.5-10.1); CREATININE 0.8 mg/dL (0.7-1.3); GFR 98.9; MAGNESIUM 1.8 mg/dL (1.8-2.4); POTASSIUM 3.6 mmol/L (3.5-5.1)
[2017-11-26] MEDS: ONDANSETRON PF 4 MG/2 ML VIAL. IV PRN (07:35)
[2017-11-26] MEDS: NICOTINE 21MG PATCH. TD SCH (07:35)
[2017-11-26] MEDS: INSULIN LISPRO 300 UNITS/3 ML INSULN.PEN. SQ SCH ×3 (08:00→17:08)
[2017-11-26] MEDS: LORazepam 1 MG TABLET PO SCH ×4 (09:00→20:30)
--- NOTE | 2017-11-26 10:06 | EKG ---
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
[2017-11-26 11:05] VITALS: BP 130/86
[2017-11-26] MEDS: FAMOTIDINE 20 MG TABLET PO SCH (11:38)
[2017-11-26] MEDS: busPIRone 5 MG TABLET. PO SCH ×2 (11:38→20:29)
[2017-11-26] MEDS: GABAPENTIN 400 MG CAPSULE. PO SCH ×2 (11:38→20:29)
[2017-11-26] MEDS: APIXABAN 5 MG TABLET. PO SCH ×2 (11:38→20:30)
[2017-11-26] MEDS: PROPRANOLOL 20 MG TABLET. PO SCH ×2 (11:41→20:29)
[2017-11-26] MEDS: metFORMIN 500 MG TABLET PO SCH (16:59)
--- NOTE | 2017-11-26 19:25 | PN ---
DATE: 11/26/2017 SUBJECTIVE: The patient is resting, slightly propped up in bed, in no apparent distress. He is less agitated, restless. He did not require any Haldol, Ativan or chlordiazepoxide. He did actually manage to walk to the bathroom and back. He is now on a clear liquid diet and has been able to tolerate it. He has no further episode of nausea, vomiting, although he continues to be generally very lethargic and sleepy. We contacted the [facility] and unfortunately they do not have any beds available and therefore, we will continue. OBJECTIVE: GENERAL: On examining him, he looked well and was clearly no pallor, jaundice, cyanosis, or thyromegaly. No jugular venous distension. No lower limb edema. VITAL SIGNS: His heart rate was 91, blood pressure was 130/86, temperature was 97.5, respiratory rate 22 and oxygen saturation was 90% on 3 liters of oxygen. HEAD, EYES, EARS, NOSE AND THROAT: Showed normocephalic, atraumatic. NECK: Supple. HEART: Showed normal first and second sounds. No gallop, rub or murmur. CHEST: Clear to auscultation. No crepitation or rhonchi. ABDOMEN: Distended, soft, nontender. No guarding or rigidity. No organomegaly. All hernial orifices are intact. Bowel sounds are normal. His intake over the last 24 hours was 3845, output was 500. LABORATORY DATA: As of this morning, his white cell count was 7900, hemoglobin 13, hematocrit 38, MCV 89 and platelet count of 121,000. His chemistry showed a serum sodium 142, potassium 3.6, chloride 105, bicarbonate 32, anion gap of 5, BUN 4, creatinine 0.8, estimated GFR was 99 mL per minute, his glucose 191, calcium was 8.8, and magnesium was 1.8. ASSESSMENT: 1. Alcohol withdrawal, delirium tremens, for which he is on alcohol withdrawal protocol. 2. Dehydration, resolved. His BUN is down from 10 to 4 and the creatinine is down from 1 to 0.8. 3. Hypokalemia, resolved. His potassium has risen from 2.8 to 3.6 4. Type 2 diabetes, reasonably controlled. 5. Hypertension for which he is on clonidine. PLAN: To continue with alcohol withdrawal protocol. Continue to monitor his blood sugar and adjust insulin as needed. Await placement tomorrow. I am not sure whether a swing bed is an option. TAN LARA MD DR: TRACY/bahman JOB#: [id number] / [id number]
[2017-11-26 20:09] VITALS: BP 127/78
[2017-11-26] MEDS: MAGNESIUM OXIDE 400 MG TABLET PO SCH (20:29)
[2017-11-26 22:35] VITALS: BP 130/83
--- NOTE | 2017-11-26 23:32 | PN ---
DATE: 11/25/2017 PSYCHIATRIC PROGRESS NOTE This is a late entry 11/25/2017 covers elements not covered in my initial note 11/25/2017. SUBJECTIVE: I met with the patient in the evening of 11/25/2017. The patient remains quite delirious, restless, agitated, grabbing at things in the air. Magnesium level is slightly low at 1.8 and we will supplement this with magnesium oxide 400 mg 3 times a day for 3 days. He remains on the detox protocol and also receives Zyprexa p.r.n., Haldol IV p.r.n. In view of the Haldol IV, we will also get a 12-lead EKG done to make sure there is no QTC prolongation. REVIEW OF SYSTEMS: No CV, , pulmonary, eye, ENT system symptoms on review. Reliability poor. MENTAL STATUS EXAM: Oriented to himself. Insight, judgment, recent and remote memory, attention, concentration, fund of knowledge poor, consistent with his diagnosis. The patient is quite anxious, restless, constantly moving, oriented just to himself, oblivious of his surroundings. LABORATORY DATA: Reviewed. IMPRESSION: Delirium tremens, alcohol withdrawal syndrome, history of alcohol abuse dependence. PLAN: Supplement the potassium. Check 12-lead EKG. Continue detox protocol. MAN Aviva YANES MD DR: CRISTIANO/bahman JOB#: [id number] / [id number]
[2017-11-27] MEDS: IPRATRPIUM/ALBUTEROL 0.5/2.5MG 3 ML NEBU. NEB SCH ×2 (05:04→11:31)
[2017-11-27] MEDS: POTASSIUM CHLORIDE 20 MEQ/15 ML ORAL LIQUID. PO SCH (05:21)
[2017-11-27 05:33] VITALS: BP 152/86
[2017-11-27] MEDS: LORazepam 1 MG TABLET PO SCH ×2 (07:47→13:33)
[2017-11-27] MEDS: POTASSIUM CL 40MEQ D5-0.45NACL 1,000 ML IV SCH (07:47)
[2017-11-27] MEDS: FAMOTIDINE 20 MG TABLET PO SCH (08:20)
[2017-11-27] MEDS: GABAPENTIN 400 MG CAPSULE. PO SCH (08:20)
[2017-11-27 08:21] VITALS: BP 152/86
[2017-11-27] MEDS: busPIRone 5 MG TABLET. PO SCH (08:21)
[2017-11-27] MEDS: APIXABAN 5 MG TABLET. PO SCH (08:21)
[2017-11-27] MEDS: PROPRANOLOL 20 MG TABLET. PO SCH (08:21)
[2017-11-27] MEDS: MAGNESIUM OXIDE 400 MG TABLET PO SCH ×2 (08:21→13:33)
[2017-11-27] MEDS: INSULIN LISPRO 300 UNITS/3 ML INSULN.PEN. SQ SCH ×2 (08:24→12:03)
[2017-11-27] MEDS: NICOTINE 21MG PATCH. TD SCH (08:25)
[2017-11-27] MEDS: MAG HYDROX/AL HYDROX/SIMETH 30 ML ORAL.SUSP PO PRN (09:22)
[2017-11-27] MEDS: ONDANSETRON PF 4 MG/2 ML VIAL. IV PRN (10:38)
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
--- NOTE | 2017-11-28 01:37 | PN ---
DATE: 11/26/2017 PSYCHIATRIC PROGRESS NOTE This is a late entry 11/26/2017 covers elements not covered in my initial note. SUBJECTIVE: I met with the patient in the evening. The patient is more awake, alert, less delirious, less psychotic. He is not trying to get out of the bed, seems oriented to himself and situation, as I met with him and overall much calmer. MENTAL STATUS EXAM: Oriented to himself and situation. Speech is coherent, has some latency. Abstraction fair, computation impaired, language function intact. Mood and affect somewhat anxious, labile. LABORATORY DATA: Reviewed. IMPRESSION: Alcohol withdrawal, delirium tremens, in partial remission, alcohol dependence, withdrawal. PLAN: No change from a psychiatric standpoint, continue psychotropics mentioned in my initial note. MAN Aviva YANES MD DR: CRISTIANO/bahman JOB#: [id number] / [id number]
== END 2017-11-27 14:30 | disposition home or self-care (01) | DRG 640 ==
LOC: ER 19:07 → 1 SOUTH 20:58
PROVIDERS: ADMIT Internal Medicine; ATTEND Internal Medicine
DX: E87.6 Hypokalemia (principal); G92 Toxic encephalopathy; F10.231 Alcohol dependence with withdrawal delirium; R45.851 Suicidal ideations; S61.512A Laceration without foreign body of left wrist, initial encounter; F10.229 Alcohol dependence with intoxication, unspecified; S60.812A Abrasion of left wrist, initial encounter; S09.90XA Unspecified injury of head, initial encounter; E11.9 Type 2 diabetes mellitus without complications; E78.5 Hyperlipidemia, unspecified; E86.0 Dehydration; F17.210 Nicotine dependence, cigarettes, uncomplicated; F31.9 Bipolar disorder, unspecified; F43.10 Post-traumatic stress disorder, unspecified; I10 Essential (primary) hypertension; J44.9 Chronic obstructive pulmonary disease, unspecified; Y90.8 Blood alcohol level of 240 mg/100 ml or more; X78.8XXA Intentional self-harm by other sharp object, initial encounter; I25.2 Old myocardial infarction; Z86.73 Personal history of transient ischemic attack (TIA), and cerebral infarction without residual deficits; Z88.0 Allergy status to penicillin; Y92.89 Other specified places as the place of occurrence of the external cause; Y99.8 Other external cause status; Y93.89 Activity, other specified
CPT/HCPCS: 36415; 70450; 70486; 71045; 72125; 80048; 80053; 80076; 80307; 81001; 82550; 82947; 83735; 85025; 85027; 85610; 85730; 90471; 90714; 93005; 94640; 96365; 96366; 96372; 96375; G0480; G6039; J1200; J1630; J1650; J1815; J2060; J2405; J3490; J7042; J7120; J7620; Q0177; S0028; 82003; 97116; 99285-25; G0479; J7030

== ENCOUNTER 2017-12-07 19:46 | Inpatient (IN) | payer MEDICARE, OTHER ==
[~2017-12-07] VITALS: Ht 172.7 cm; Wt 87.6 kg
[~2017-12-07 19:46] MED LIST changes: +ACET325T9 PO; +APIX5TAB3 PO; +BUSP5TAB PO; +GABA800T2 PO; +HYDR25CA75 PO; +METF500T5 PO; +PROP40TA PO
--- NOTE | 2017-12-07 20:02 | EKG ---
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
--- NOTE | 2017-12-07 21:20 | PHYS DOC ---
Past History Past Medical History: Anxiety, Bipolar, COPD, Depression, Other Past Surgical History: Other Smoking: Less than 1pk/day Alcohol Use: Heavy Drug Use: None Adult General Chief Complaint Chief Complaint: ALCOHOL INTOXICATION HPI HPI 57-year-old male presents via EMS with alcohol intoxication. He tells me that he has been drinking half a gallon of whiskey for about 2 weeks. He has had no food in the last 2 or 3 days. EMS was called because the patient called a suicide hotline and stated he wanted to . He adamantly denied suicidal ideation to EMS. He continues to deny wanting to or trying to hurt himself to me. He specifically denies trying to drink himself to when I ask. He has no other complaints other than he is hungry. Review of Systems Review of Systems Constitutional: Denies fever or chills [] Eyes: Denies change in visual acuity, redness, or eye pain [] HENT: Denies nasal congestion or sore throat [] Respiratory: Denies cough or shortness of breath [] Cardiovascular: No additional information not addressed in HPI [] GI: Denies abdominal pain, nausea, vomiting, bloody stools or diarrhea [] : Denies dysuria or hematuria [] Musculoskeletal: Denies back pain or joint pain [] Integument: Denies rash or skin lesions [] Neurologic: Denies headache, focal weakness or sensory changes [] Endocrine: Denies polyuria or polydipsia [] All other systems were reviewed and found to be within normal limits, except as documented in this note. Allergies Allergies Allergies Coded Allergies Type Severity Reaction Last Updated Verified Penicillins Allergy Intermediate 11/22/17 Yes Physical Exam Physical Exam Constitutional: Well developed, well nourished, no acute distress, non-toxic appearance. Intoxicated [] HENT: Normocephalic, atraumatic, bilateral external ears normal, oropharynx moist, no oral exudates, nose normal. [] Eyes: PERRLA, EOMI, conjunctiva normal, no discharge. [] Neck: Normal range of motion, no tenderness, supple, no stridor. [] Cardiovascular:Heart rate regular rhythm, no murmur [] Lungs & Thorax: Bilateral breath sounds clear to auscultation [] Abdomen: Bowel sounds normal, soft, no tenderness, no masses, no pulsatile masses. [] Skin: Warm, dry, no erythema, no rash. [] Back: No tenderness, no CVA tenderness. [] Extremities: No tenderness, no cyanosis, no clubbing, ROM intact, no edema. [] Neurologic: Alert and oriented X 3, normal motor function, normal sensory function, no focal deficits noted. [] Psychologic: Affect normal, judgement normal, mood normal. [] EKG EKG Sinus rhythm, rate 89, left axis deviation, QTC 478, no ST elevations or depressions[] Radiology/Procedures Radiology/Procedures [] Course & Med Decision Making Course & Med Decision Making Pertinent Labs and Imaging studies reviewed. (See chart for details) We had a difficult time obtaining blood from the patient. Once we got a line, we gave him a banana bag and additional 1 L of normal saline. The patient's labs were mostly unremarkable except for low albumin of elevated AST and alkaline phosphatase. The patient's alcohol level was 293. His urine drug screen also was positive for benzodiazepines. The patient is unable to stand on his own and ambulate. I will admit him to the hospital for further management. [] Dragon Disclaimer Dragon Disclaimer This electronic medical record was generated, in whole or in part, using a voice recognition dictation system. Departure Departure: Referrals: NON,STAFF (PCP) CORI ANDREA DO Dec 07, 2017 21:20
[2017-12-07 21:21] LABS: BASO % 1 % (0-3); EOS # 0.1 x10^3/uL (0.0-0.7); EOS % 2 % (0-3); HEMATOCRIT 40.2 % (39.0-53.0); HEMOGLOBIN 13.4 g/dL (13.0-17.5); LYMPH # 1.9 x10^3/uL (1.0-4.8); LYMPH % 37 % (24-48); MEAN CORPUSCULAR HEMOGLOBIN 29 pg (25-35); MEAN CORPUSCULAR HGB CONC 33 g/dL (31-37); MEAN CORPUSCULAR VOLUME 86 fL (79-100); MONO # 0.4 x10^3/uL (0.0-1.1); MONO % 7 % (0-9); NEUT # 2.7 x10^3uL (1.8-7.7); NEUT % 52 % (31-73); PLATELET COUNT 252 x10^3/uL (140-400); RED BLOOD COUNT 4.65 x10^6/uL (4.30-5.70); RED CELL DISTRIBUTION WIDTH 16.8 % (11.5-14.5); WHITE BLOOD COUNT 5.1 x10^3/uL (4.0-11.0)
[2017-12-07 21:29] LABS: ALBUMIN 3.2 g/dL (3.4-5.0); ALBUMIN/GLOBULIN RATIO 0.8 (1.0-1.7); CALCIUM 8.2 mg/dL (8.5-10.1); CREATININE 0.8 mg/dL (0.7-1.3); GFR 98.9; POTASSIUM 3.5 mmol/L (3.5-5.1); TOTAL BILIRUBIN 0.3 mg/dL (0.2-1.0); TOTAL PROTEIN 7.2 g/dL (6.4-8.2)
[2017-12-07] MEDS ORDERED: MVI, ADULT NO.4 WITH VIT K 10 ML, FOLIC ACID 1 MG, THIAMINE 100 MG in IV NORMAL SALINE ... IV ONE ×4 (22:00)
[2017-12-07] MEDS ORDERED: MVI, ADULT NO.4 WITH VIT K 10 ML VIAL IV ONE (23:04)
[2017-12-07] MEDS ORDERED: FOLIC ACID 5 MG/ML SYRINGE for ER IV ONE (23:04)
[2017-12-07] MEDS ORDERED: THIAMINE 200 MG/2 ML VIAL. IV ONE (23:04)
[2017-12-07] MEDS ORDERED: LORazepam 2 MG/ML VIAL ONE (23:18)
[2017-12-07] MEDS ORDERED: LORazepam 2 MG/ML VIAL IV ONE (23:30)
[2017-12-08] VITALS (9 sets, daily range): BP systolic 119–157; BP diastolic 56–88
[2017-12-08] MEDS ORDERED: IV NORMAL SALINE 1,000ML 1,000 ML IV ONE (00:45)
[2017-12-08 02:01] LABS: BACTERIA,URINE 0 /HPF (0-FEW); BARBITURATES NEG (NEG); BENZODIAZEPINES POS (NEG); BILIRUBIN,URINE NEG (NEG); CANNABINOIDS NEG (NEG); CLARITY,URINE CLEAR; COCAINE NEG (NEG); COLOR,URINE YELLOW; GLUCOSE,URINE NEG (NEG); METHADONE NEG (NEG); NITRITE,URINE NEG (NEG); OPIATES NEG (NEG); PHENCYCLIDINE NEG (NEG); RBC,URINE 0 /HPF (0-2); SQUAMOUS EPITHELIAL CELL,UR OCC /LPF; UROBILINOGEN,URINE 2 mg/dL (0.2 mg/dL)
[2017-12-08 02:02] LABS: AMPHETAMINE/METHAMPHETAMINE NEG (NEG)
[2017-12-08] MEDS ORDERED: ONDANSETRON PF 4 MG/2 ML VIAL. IV PRN (02:30)
[2017-12-08 09:48] LABS: ALBUMIN 2.8 g/dL (3.4-5.0); ALBUMIN/GLOBULIN RATIO 0.8 (1.0-1.7); CALCIUM 7.7 mg/dL (8.5-10.1); CREATININE 0.7 mg/dL (0.7-1.3); GFR 115.4; MAGNESIUM 1.7 mg/dL (1.8-2.4); POTASSIUM 3.2 mmol/L (3.5-5.1); TOTAL BILIRUBIN 0.6 mg/dL (0.2-1.0); TOTAL PROTEIN 6.5 g/dL (6.4-8.2)
--- NOTE | 2017-12-08 10:52 | NUR ---
Patient worked with PT/OT today, still very unsteady but was able to use walker and ambulate throughout facility with standby assistance. Patient was able to sit up in the chair for an hour while nurse assisted with bed bath and shave. Patient continues to be alert and oriented, denies SI thoughts at this time or plan. States he is ready to go home.
[2017-12-08] MEDS ORDERED: MAGNESIUM SULFATE 2GM 50 ML IV ONE (11:00)
[2017-12-08] MEDS ORDERED: POTASSIUM CHLORIDE 20 MEQ TABLET.ER. PO ONE (11:00)
[2017-12-08] MEDS ORDERED: ACETAMINOPHEN 325 MG TABLET PO PRN (12:30)
[2017-12-08] MEDS ORDERED: HALOPERIDOL LACT 5 MG/ML VIAL. IM PRN (12:30)
[2017-12-08] MEDS ORDERED: diphenhydrAMINE 50 MG/ML VIAL IVP PRN (12:30)
[2017-12-08] MEDS ORDERED: chlordiazePOXIDE HCL 25 MG CAPSULE PO PRN ×2 (12:30)
[2017-12-08] MEDS ORDERED: LORazepam 1 MG TABLET PO PRN (12:30)
--- NOTE | 2017-12-08 12:53 | HP ---
ADMIT DATE: 12/08/2017 HISTORY OF PRESENT ILLNESS: The patient is a 57-year-old male patient who yet again came to the Emergency Room via emergency medical services personnel with alcohol intoxication. He has been drinking half a gallon of whiskey for about 2 weeks now. He has no food in the last 2-3 days. Emergency medical service personnel were called because the patient called the suicide hotline, stated he wanted to . He adamantly denied suicidal ideation to the emergency medical services. He continues to deny wanting to or trying to hurt himself. By the time he arrived to the Emergency Room, he specifically denied trying to drink himself to when he was asked about that. He has no other complaints other than he is hungry. He was offered to go to the [facility]; however, he asked the ambulance to bring him here as he is treated better at the [facility]. When he was evaluated in the Emergency Room, he was found to be intoxicated. His blood alcohol level was 293. Although all other toxicology screen were negative, he was admitted with alcohol intoxication and suicidal ideation. PAST MEDICAL HISTORY: Significant for type 2 diabetes, hypertension. He is also known to have history of myocardial infarction, according to him. He is known to have COPD, has multiple cerebrovascular accidents, according to him also. PAST SURGICAL HISTORY: Significant for he broke his right fifth finger that was treated with open reduction and internal fixation. He has also multiple endoscopies and colonoscopies. ALLERGIES: HE IS ALLERGIC TO PENICILLIN. FAMILY HISTORY: He has 1 brother and 7 sisters. Both parents are . SOCIAL HISTORY: He is for more than 20 years. He does not have children. He continues to smoke a pack a day, drinks alcohol heavily. He does not use any drugs. He is currently on disability. 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 MEDICATIONS: He is currently on following medications: He is on propranolol 40 mg twice a day, Tylenol 650 mg every 4 hours, gabapentin 800 mg twice a day, buspirone 5 mg twice a day, hydroxyzine pamoate 25 mg 3 times a day, metformin 500 mg once a day. PHYSICAL EXAMINATION: GENERAL: On arrival to the Emergency Room, he looked well and was clearly in no apparent respiratory distress. He was a well-developed, well-nourished, 57-year-old male patient. The is no pallor, jaundice, cyanosis, lymphadenopathy or thyromegaly. No jugular venous distension. No lower limb edema. VITAL SIGNS: His heart rate was 91, blood pressure 112/73, temperature was 98.5, respiratory rate 21 and oxygen saturation was 96% on 3 liters of oxygen by nasal cannula. HEENT: Showed normocephalic, atraumatic. NECK: Supple. HEART: Showed normal first and second heart sounds. No gallop, rub or murmur. CHEST: Clear to auscultation. No crepitation or rhonchi. ABDOMEN: Distended, soft, nontender. No guarding or rigidity. No organomegaly. Hernial orifice intact. Bowel sounds normal. NEUROLOGIC: He is intoxicated, however, without any obvious lateralizing sign. All cranial nerves intact. EXTREMITIES: He moves extremities spontaneously, although he is mostly bed bound. LABORATORY DATA: On admission showed a serum sodium 140, potassium 3.5, chloride 99, bicarbonate 31, anion gap of 10, BUN 11, creatinine 0.8, estimated GFR was 99 mL per minute, his glucose 136, calcium was 8.2. Total bilirubin and ALT normal. AST and alkaline phosphatase slightly elevated. Total protein was 7.2, albumin 3.2. His white cell count was 5000, hemoglobin 13, hematocrit 40, MCV 86 and platelet count 252,000 with normal manual differential. Urinalysis showed the urine was yellow, clear with a pH of 6.5, specific gravity of 1.020. There was a trace of protein, negative for glucose, trace of ketones. The urine was negative for blood, nitrite, leukocyte esterase. There are no rbc's, but 1-4 wbc's and no bacteria. His urine toxicology screen showed that his blood alcohol level was 293. The urine toxicology screen was negative for opiates, methadone, barbiturates, phencyclidine, methamphetamine, amphetamine, benzodiazepine, cocaine as well as cannabinoids. ASSESSMENT AND PLAN: In summary, this is a 57-year-old male patient who was admitted yet again with another episode of intoxication and also suicidal ideation, although as he apparently called the hotline for that, although he adamantly denies any suicidal ideation to the emergency medical services personnel and also to the ER physician. We will continue with his current medication. He did receive a banana bag. We will continue with the alcohol withdrawal protocol and replenish his potassium and magnesium. TAN LARA MD DR: TRACY/bahman JOB#: [id number] / [id number]
[2017-12-08] MEDS ORDERED: hydrOXYzine PAMOATE 25 MG CAPSULE PO PRN (13:15)
[2017-12-08] MEDS: POTASSIUM CHLORIDE 20 MEQ TABLET.ER. PO SCH ×3 (13:23→20:47)
[2017-12-08] MEDS: MAGNESIUM OXIDE 400 MG TABLET PO SCH ×2 (13:49→20:47)
[2017-12-08] MEDS ORDERED: MAG HYDROX/AL HYDROX/SIMETH 30 ML ORAL.SUSP PO PRN (16:15)
[2017-12-08] MEDS ORDERED: metFORMIN 500 MG TABLET PO SCH (17:00)
[2017-12-08] MEDS: busPIRone 5 MG TABLET. PO SCH (20:46)
[2017-12-08] MEDS: PROPRANOLOL 20 MG TABLET. PO SCH (20:47)
[2017-12-08] MEDS: GABAPENTIN 400 MG CAPSULE. PO SCH (20:48)
--- NOTE | 2017-12-09 05:00 | NUR ---
pt has had a good night, he has only required 1 dose of Libruim. pt states he is feeling much better, stating he should be going home today. pt goddard not want any meds at this time for etoh withdrawl.
[2017-12-09 06:00] VITALS: BP 137/92
[2017-12-09 06:53] LABS: CALCIUM 8.3 mg/dL (8.5-10.1); CREATININE 0.8 mg/dL (0.7-1.3); GFR 98.9; MAGNESIUM 2.2 mg/dL (1.8-2.4); POTASSIUM 3.5 mmol/L (3.5-5.1)
[2017-12-09 07:49] VITALS: BP 137/91
[2017-12-09 07:57] VITALS: BP 144/104
[2017-12-09] MEDS: busPIRone 5 MG TABLET. PO SCH (07:57)
[2017-12-09] MEDS: PROPRANOLOL 20 MG TABLET. PO SCH (07:57)
[2017-12-09] MEDS: POTASSIUM CHLORIDE 20 MEQ TABLET.ER. PO SCH ×2 (07:57→13:30)
[2017-12-09] MEDS: GABAPENTIN 400 MG CAPSULE. PO SCH (07:57)
[2017-12-09] MEDS: MAGNESIUM OXIDE 400 MG TABLET PO SCH ×2 (07:57→13:30)
[2017-12-09] MEDS ORDERED: MVI, ADULT NO.4 WITH VIT K 10 ML, THIAMINE 100 MG, FOLIC ACID 1 MG in IV NORMAL SALINE ... IV SCH ×4 (09:00)
--- NOTE | 2017-12-09 09:32 | NUR ---
Pt woke up this morning for breakfast and had approx 2 bites of his waffles and then stated, "I'm ready to take another nap." This nurse assessed the pt and assisted the pt up to the urinal, the pt was completely steady on feet and required no assistance with ambulation. Pt does not appear to be agitated or anxious and refuses any PRN medications. This nurse offered the pt a shower, the pt stated, "No because I'm going home today." This nurse agreed with the pt and let the pt rest. Call light within reach. Will CTM.
--- NOTE | 2017-12-09 14:12 | NUR ---
Pt discharged from the hospital. IV discontinued. Instruction provided to the pt. Pt off unit to taxi cab.
--- NOTE | 2017-12-09 19:12 | DS ---
DATE OF DISCHARGE: 12/09/2017 HOSPITAL COURSE: The patient was admitted with suicidal ideation and alcohol intoxication. However, by the time he arrived here, he adamantly denied any suicidal ideation. His blood alcohol level was high at 293, yesterday he was extremely unsteady and his gait was evaluated by physical therapy and we did not think it is safe for him to go home. PHYSICAL EXAMINATION: GENERAL: Today, when I saw him, he was sitting comfortably in his chair, in no apparent distress. He has been up and about without any difficulty. He is definitely more awake, alert and ready to go home. When I examined him, there was no pallor, jaundice, cyanosis, or thyromegaly. No jugular venous distension. No lower limb edema. VITAL SIGNS: His heart rate was 66, blood pressure was 137/91, temperature was 97, respiratory rate was 20, and oxygen saturation was 97% on room air. HEAD, EYES, EARS, NOSE AND THROAT: Showed normocephalic, atraumatic. NECK: Supple. HEART: Showed normal first and second heart sounds. No gallop, rub or murmur. CHEST: Clear to auscultation. No crepitation or rhonchi. ABDOMEN: Distended, soft, nontender. No guarding or rigidity. No organomegaly. Hernial orifice intact. Bowel sounds normal. NEUROLOGIC: He was awake, alert, responding appropriately. Cranial nerves intact. EXTREMITIES: He moves extremities without difficulty, ambulates without assistance or assistive devices. LABORATORY DATA: Showed a serum sodium 139, potassium 3.5, chloride 103, bicarbonate 29, anion gap of 7, BUN 7, creatinine 0.8, estimated GFR was 99 mL per minute. His glucose 163, calcium was 8.3, magnesium was 2.2. His white cell count was 5100, hemoglobin 13, hematocrit 40, MCV 86 and platelet count 252,000. Urinalysis is unremarkable. Urine toxicology screen was positive for alcohol with a blood alcohol level of 293 on admission. DISCHARGE MEDICATIONS: He will be discharged on buspirone 5 mg twice a day, gabapentin 800 mg twice a day, hydroxyzine pamoate 25 mg 3 times a day, metformin 500 mg in the evening, and propranolol 40 mg twice a day. FINAL DISCHARGE DIAGNOSES: 1. Suicidal ideation. 2. Alcohol intoxication. 3. Hypertension. 4. Type 2 diabetes. 5. Alcoholic peripheral neuropathy. TAN LARA MD DR: TRACY/bahman JOB#: [id number] / [id number]
== END 2017-12-09 14:16 | disposition home or self-care (01) | DRG 74 ==
LOC: ER 19:46 → ICU 12-08 02:28 → ER 12-08 02:46
PROVIDERS: ADMIT Internal Medicine; ATTEND Internal Medicine
DX: G62.1 Alcoholic polyneuropathy (principal); R45.851 Suicidal ideations; F10.129 Alcohol abuse with intoxication, unspecified; E11.9 Type 2 diabetes mellitus without complications; Y90.8 Blood alcohol level of 240 mg/100 ml or more; F41.9 Anxiety disorder, unspecified; F17.210 Nicotine dependence, cigarettes, uncomplicated; I10 Essential (primary) hypertension; J44.9 Chronic obstructive pulmonary disease, unspecified; Z86.73 Personal history of transient ischemic attack (TIA), and cerebral infarction without residual deficits; I25.2 Old myocardial infarction; Z88.0 Allergy status to penicillin; Z79.899 Other long term (current) drug therapy
CPT/HCPCS: 36415; 80048; 80053; 80307; 81001; 83735; 85025; 87641; 93005; 96361; 96365; 96375; G0480; J2060; J3475; 99285-25; G0479; J7030

== ENCOUNTER 2017-12-16 03:05 | Inpatient (IN) | payer MEDICARE ==
[~2017-12-16] VITALS: Ht 172.7 cm; Wt 91.6 kg
--- NOTE | 2017-12-16 03:17 | ED.ADGEN ---
Past History Past Medical History: Alcoholism, Anxiety, Bipolar, COPD, Depression, Hypertension, Other Past Surgical History: Other Smoking: Less than 1pk/day Alcohol Use: Heavy Drug Use: None Adult General Chief Complaint Chief Complaint ".. I fell.. I busted my ass..."..."I bust my head bad... the last time delgado hard..." Delgado out of it..".. " I fell 4 x today...".. " I only drank a pint this morning...".. "... I drank about a gallon yesterday ...".." I wanted to go to [facility]... but they refused me..." HPI HPI Patient is a 57 year old male who presents with hx of excessive ETOH use tonight with recurrent falls. Pt. denies loss of conscious with fall and head injuries. Patient states he did see stars with the last fall and was".. kind of out of it for a minute.. ". Patient admits to heavy alcohol use all day yesterday and approximately a pint of alcohol morning. Patient has a history of alcohol abuse for the past. Patient has history of COPD, PTSD, depression, bipolar disorder, and anxiety. Patient normally follows at [facility]. Patient does history of alcohol withdrawal on the past. Patient denies other drug use tonight. Patient does smoke.. Review of Systems Review of Systems Constitutional: Denies fever or chills [] Eyes: Denies change in visual acuity, redness, or eye pain [] HENT: Denies nasal congestion or sore throat [] Respiratory: Denies cough or shortness of breath [] Cardiovascular: No additional information not addressed in HPI [] GI: Denies abdominal pain, nausea, vomiting, bloody stools or diarrhea [] : Denies dysuria or hematuria [] Musculoskeletal: Denies back pain or joint pain [] Integument: Denies rash or skin lesions [] Neurologic: Complaints of headache,. Patient denies focal weakness or sensory changes [] Endocrine: Denies polyuria or polydipsia [] All other systems were reviewed and found to be within normal limits, except as documented in this note. Family History Family History Limited family history. Current Medications Current Medications Current Medications Medications (Trade) Dose Ordered Sig/Ron Start Time Stop Time Status Last Admin Dose Admin Folic Acid (FOLIC ACID SYRINGE for ER) 5 mg STK-MED ONCE 12/16/17 03:30 12/16/17 03:32 DC Multivitamins/ Minerals (Infuvite Adult) 10 ml STK-MED ONCE 12/16/17 03:30 12/16/17 03:31 DC Multivitamins/ Minerals 10 ml/ Folic Acid 1 mg/ Thiamine HCl 100 mg/Sodium Chloride 1,011.1 ml @ 1,000 mls/ hr 1X ONCE 12/16/17 03:30 12/16/17 04:30 DC 12/16/17 04:00 1,000 MLS/HR Thiamine HCl 200 mg STK-MED ONCE 12/16/17 03:30 12/16/17 03:31 DC See nursing for home medications Allergies Allergies Allergies Coded Allergies Type Severity Reaction Last Updated Verified Penicillins Allergy Intermediate 11/22/17 Yes Physical Exam Physical Exam Constitutional: Moderately acute distress, very intoxicated in appearance. [] HENT: Normocephalic, contusion posterior scalp, bilateral external ears normal, oropharynx moist, no oral exudates, nose normal. [] Eyes: PERRLA, EOMI, conjunctiva normal, no discharge. [] Neck: Limited range of motion pt. in cervical collar, mild cervical tenderness, supple, no stridor. [] Cardiovascular: Tachycardia Heart rate regular rhythm, no murmur []PMI to the left Lungs & Thorax: Bilateral breath sounds equal with scattered wheezes on auscultation [] Abdomen: Bowel sounds normal, soft, no tenderness, no masses, no pulsatile masses. [Obese. ] Skin: Warm, dry, no erythema, no rash. [] Back: No tenderness, no CVA tenderness. [] Extremities: No marked tenderness, no cyanosis, no clubbing, ROM intact, no edema. [] Neurologic: Alert and oriented X 3, Moves all ext. on request. No gross sensory function deficits, Discoordinated. Industrial Relations Counselor equal with hands.[] Psychologic: Affect anxious and impatient, , mood depressed. Does tell jokes to nurses. Current Patient Data Vital Signs Vital Signs Date Time Temp Pulse Resp B/P (MAP) Pulse Ox O2 Delivery O2 Flow Rate FiO2 12/16/17 03:05 97.9 98 20 96 Room Air Lab Results Laboratory Tests Test 12/16/17 03:55 White Blood Count 4.7 x10^3/uL (4.0-11.0) Red Blood Count 4.55 x10^6/uL (4.30-5.70) Hemoglobin 12.9 g/dL (13.0-17.5) L Hematocrit 39.1 % (39.0-53.0) Mean Corpuscular Volume 86 fL (79-100) Mean Corpuscular Hemoglobin 28 pg (25-35) Mean Corpuscular Hemoglobin Concent 33 g/dL (31-37) Red Cell Distribution Width 16.9 % (11.5-14.5) H Platelet Count 156 x10^3/uL (140-400) Neutrophils (%) (Auto) 38 % (31-73) Lymphocytes (%) (Auto) 49 % (24-48) H Monocytes (%) (Auto) 10 % (0-9) H Eosinophils (%) (Auto) 3 % (0-3) Basophils (%) (Auto) 1 % (0-3) Neutrophils # (Auto) 1.8 x10^3uL (1.8-7.7) Lymphocytes # (Auto) 2.3 x10^3/uL (1.0-4.8) Monocytes # (Auto) 0.5 x10^3/uL (0.0-1.1) Eosinophils # (Auto) 0.1 x10^3/uL (0.0-0.7) Basophils # (Auto) 0.0 x10^3/uL (0.0-0.2) Prothrombin Time 10.4 SEC (9.4-11.4) Prothrombin Time INR 1.0 (0.9-1.1) PTT 23 SEC (23-33) Sodium Level 142 mmol/L (136-145) Potassium Level 2.9 mmol/L (3.5-5.1) *L Chloride Level 100 mmol/L (98-107) Carbon Dioxide Level 32 mmol/L (21-32) Anion Gap 10 (6-14) Blood Urea Nitrogen 8 mg/dL (8-26) Creatinine 0.9 mg/dL (0.7-1.3) Estimated GFR (Cockcroft-Gault) 86.4 Glucose Level 126 mg/dL (70-99) H Calcium Level 8.9 mg/dL (8.5-10.1) Magnesium Level 1.3 mg/dL (1.8-2.4) L Creatine Kinase 105 U/L (39-308) Creatine Kinase MB (Mass) 0.9 ng/mL (0.0-3.6) Creatine Kinase MB Relative Index 0.9 % (0-4) Troponin I Quantitative < 0.017 ng/mL (0-0.055) [id number]-Yqa-C-Type Natriuretic Peptide 13 pg/mL (0-124) Ethyl Alcohol Level 238 mg/dL (0-10) H EKG EKG My interpretation of EKG shows a sinus rhythm at 93 bpm. Does have occasional PVC. Some nonspecific anterior fascicular block findings. No findings acute STEMI of contralateral changes.[] Radiology/Procedures Radiology/Procedures Interpretation of chest x-ray shows atelectasis. Cardiomegaly. No acute change from prior chest x-ray on file. My interpretation CT of head shows encephalomalacia right acceptable parietal and frontal areas. This appears to be similar to prior CT on file. My interpretation CT cervical shows severe degenerative joint changes and narrowing at C6, C7. See formal report when available.[] Course & Med Decision Making Course & Med Decision Making Pertinent Labs and Imaging studies reviewed. (See chart for details) Plan admit to Dr. Quezada- further eval. and observation for ETOH withdrawal and Closed Head injury [] Final Impression Final Impression 1. Alcohol Abuse[] 2. Falling 3. Closed Head injury 4. ETOH Intoxication 5. Hx. ETOH withdrawal 6. Severe DJD-Cervical- 7. Prior CVA- with Encephalomalacia findings 8. Hx. Depression- Bipolar 9. Hx. PTSD 10.Hx. Anxiety Disorder 11. Hypokalemia-2.9 12. Anemia 13. Hypo-magnesium 1.3 14. Night terrors Dragon Disclaimer Dragon Disclaimer This electronic medical record was generated, in whole or in part, using a voice recognition dictation system. CHANTE KITCHEN MD Dec 16, 2017 03:16
[2017-12-16] MEDS ORDERED: MVI, ADULT NO.4 WITH VIT K 10 ML, FOLIC ACID SYRINGE for ER 1 MG, THIAMINE 100 MG in IV... IV ONE ×4 (03:30)
[2017-12-16] MEDS ORDERED: THIAMINE 200 MG/2 ML VIAL. IV ONE (03:30)
[2017-12-16] MEDS ORDERED: MVI, ADULT NO.4 WITH VIT K 10 ML VIAL IV ONE (03:30)
[2017-12-16] MEDS ORDERED: FOLIC ACID 5 MG/ML SYRINGE for ER IV ONE (03:30)
--- NOTE | 2017-12-16 03:40 | EKG ---
[address] [address] Test Date: 2017-12-16 Test Time: 03:35:22 Pat Name: NILDA BOOKER Department: Room: Gender: M Blanket Inspector: : 1960 Requested By: CHANTE KITCHEN Order Number: [id number] Reading MD: Measurements Intervals [place] Rate: 93 P: 0 WV: 160 QRS: -40 QRSD: 98 T: 64 QT: 370 QTc: 463 Interpretive Statements SINUS RHYTHM VENTRICULAR PREMATURE COMPLEX(ES) ABNORMAL LEFT AXIS DEVIATION LEFT ANTERIOR FASCICULAR BLOCK ABNORMAL ECG RI6.01 Unconfirmed report No previous ECG available for comparison
[2017-12-16 04:16] LABS: BASO % 1 % (0-3); EOS # 0.1 x10^3/uL (0.0-0.7); EOS % 3 % (0-3); HEMATOCRIT 39.1 % (39.0-53.0); HEMOGLOBIN 12.9 g/dL (13.0-17.5); LYMPH # 2.3 x10^3/uL (1.0-4.8); LYMPH % 49 % (24-48); MEAN CORPUSCULAR HEMOGLOBIN 28 pg (25-35); MEAN CORPUSCULAR HGB CONC 33 g/dL (31-37); MEAN CORPUSCULAR VOLUME 86 fL (79-100); MONO # 0.5 x10^3/uL (0.0-1.1); MONO % 10 % (0-9); NEUT # 1.8 x10^3uL (1.8-7.7); NEUT % 38 % (31-73); PLATELET COUNT 156 x10^3/uL (140-400); RED BLOOD COUNT 4.55 x10^6/uL (4.30-5.70); RED CELL DISTRIBUTION WIDTH 16.9 % (11.5-14.5); WHITE BLOOD COUNT 4.7 x10^3/uL (4.0-11.0)
--- NOTE | 2017-12-16 04:28 | RAD ---
INDICATION: Fall, hit head, headache, neck pain, on blood thinner COMPARISON: November 22, 2017 TECHNIQUE: Axial CT images obtained through the head and cervical spine without intravenous contrast. Coronal and sagittal reformats processed of cervical spine. One or more of the following individualized dose reduction techniques were utilized for this examination: 1. Automated exposure control; 2. Adjustment of the mA and/or kV according to patient size; 3. Use of iterative reconstruction technique. FINDINGS: Head: No intracranial hemorrhage. No midline shift. Basal cisterns patents. Ventricles and sulci are within normal limits. No acute osseous abnormality. Orbits and paranasal sinuses unremarkable. Cervical: No definite acute fracture. No dislocation. No evidence of perivertebral hematoma. IMPRESSION: 1. No acute intracranial hemorrhage. 2. Regions of low attenuation within the white matter. Nonspecific but can be secondary to chronic small vessel ischemic disease. There is also a region of encephalomalacia left cerebral hemisphere which could be from old infarct. 3. Degenerative changes throughout the cervical spine with osteophyte formation at the vertebral body endplates as well as facet hypertrophy with multilevel central canal and neural foraminal stenosis. 4. No definite acute fracture or dislocation of the cervical spine. Electronically signed by: Reynold Lux MD (12/16/2017 4:24 AM) [facility]
[2017-12-16 04:41] LABS: CALCIUM 8.9 mg/dL (8.5-10.1); CREATININE 0.9 mg/dL (0.7-1.3); GFR 86.4; MAGNESIUM 1.3 mg/dL (1.8-2.4)
[2017-12-16 04:45] LABS: POTASSIUM 2.9 mmol/L (3.5-5.1)
[2017-12-16] MEDS ORDERED: POTASSIUM CHLORIDE 20 MEQ/15 ML ORAL LIQUID. PO ONE (05:00)
[2017-12-16] MEDS ORDERED: MAGNESIUM HYDROXIDE 2,400 MG/30 ML ORAL.SUSP. PO ONE (05:00)
[2017-12-16] MEDS ORDERED: MAGNESIUM SULFATE 2GM 50 ML IV ONE (06:00)
[2017-12-16 06:14] VITALS: BP 163/88
[2017-12-16 06:26] LABS: AMPHETAMINE/METHAMPHETAMINE NEG (NEG); BARBITURATES NEG (NEG); BENZODIAZEPINES POS (NEG); BILIRUBIN,URINE NEG (NEG); CANNABINOIDS NEG (NEG); CLARITY,URINE CLEAR; COCAINE NEG (NEG); COLOR,URINE YELLOW; GLUCOSE,URINE NEG (NEG); METHADONE NEG (NEG); OPIATES NEG (NEG); PHENCYCLIDINE NEG (NEG)
[2017-12-16 06:27] LABS: BACTERIA,URINE 0 /HPF (0-FEW); HYALINE CASTS, URINE OCC /HPF; NITRITE,URINE NEG (NEG); SQUAMOUS EPITHELIAL CELL,UR OCC /LPF; UROBILINOGEN,URINE 1 mg/dL (0.2 mg/dL); WBC,URINE OCC /HPF (0-4)
[2017-12-16] MEDS ORDERED: chlordiazePOXIDE HCL 25 MG CAPSULE PO PRN (07:00)
[2017-12-16] MEDS ORDERED: LORazepam 2 MG/ML VIAL IV PRN (07:00)
[2017-12-16] MEDS ORDERED: cloNIDine HCL 0.1 MG TABLET PO PRN (07:00)
[2017-12-16] MEDS ORDERED: HALOPERIDOL LACT 5 MG/ML VIAL. IV PRN (07:00)
[2017-12-16] MEDS ORDERED: diphenhydrAMINE 50 MG/ML VIAL IVP PRN (07:00)
[2017-12-16] MEDS ORDERED: POTASSIUM CHLORIDE 20 MEQ TABLET.ER. PO ONE (08:00)
[2017-12-16] MEDS: chlordiazePOXIDE HCL 25 MG CAPSULE PO PRN (08:12)
[2017-12-16] MEDS: IV NORMAL SALINE 1,000ML 1,000 ML IV SCH ×3 (08:15→23:45)
[2017-12-16 11:19] VITALS: BP 163/94
[2017-12-16 11:26] LABS: ALBUMIN 3.4 g/dL (3.4-5.0); ALBUMIN/GLOBULIN RATIO 0.9 (1.0-1.7); CALCIUM 8.7 mg/dL (8.5-10.1); CREATININE 0.8 mg/dL (0.7-1.3); GFR 98.9; MAGNESIUM 1.9 mg/dL (1.8-2.4); POTASSIUM 3.5 mmol/L (3.5-5.1); TOTAL BILIRUBIN 0.4 mg/dL (0.2-1.0)
--- NOTE | 2017-12-16 15:00 | HP ---
ADMIT DATE: 12/16/2017 HISTORY OF PRESENT ILLNESS: The patient is a 57-year-old male patient who yet again came back as the [facility] refused to take him as he apparently fell multiple times, stated that he busted his head as he fell about 4 times. He said that he drank about a gallon yesterday and a pint this morning and was brought to the Emergency Room with excessive alcohol use and recurrent falls. He denied any loss of consciousness with fall and head injuries. He stated that he sees stars with the last fall, was kind of out of it for a minute. He admits to heavy alcohol use all day yesterday and approximately a pint of alcohol this morning. The patient has a history of alcohol abuse in the past. The patient has history of COPD, posttraumatic stress disorder, depression, bipolar disorder, anxiety. This is his third admission again with alcohol intoxication. He had had history of alcohol withdrawal in the past. He denied any drug use or smoking. PAST MEDICAL HISTORY: Significant for type 2 diabetes, hypertension. He is also known to have history of myocardial infarction, according to him. He is known to have COPD, has multiple cerebrovascular accidents, history of posttraumatic stress disorder, bipolar disorder, anxiety and was admitted before with suicidal ideation. PAST SURGICAL HISTORY: Significant for right fifth finger fracture, was treated with open reduction and internal fixation, also multiple endoscopies and colonoscopies. ALLERGIES: HE IS ALLERGIC TO PENICILLIN. FAMILY HISTORY: He has 1 brother and 7 sisters. Both parents are . SOCIAL HISTORY: for more than 20 years. He does not have children. He continued to smoke a pack a day, drinks alcohol heavily. He does not use any drugs. He is currently on disability. 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 MEDICATIONS: He is currently on following medications: He is on propranolol 40 mg twice a day, Tylenol 650 mg every 4 hours, gabapentin 800 mg twice a day, buspirone 5 mg twice a day, hydroxyzine pamoate 25 mg 3 times a day, metformin 500 mg in the evening. REVIEW OF SYSTEMS: As per history of present illness as the patient was heavily intoxicated. PHYSICAL EXAMINATION: GENERAL: On examining him, the patient was well developed, well nourished, in moderate acute distress, very intoxicated in appearance. VITAL SIGNS: His heart rate was 98, blood pressure was 151/91, temperature was 97.9, respiratory rate 20, and oxygen saturation was 96% on room air. HEENT : Showed normocephalic, atraumatic. NECK: Supple. HEART: Showed normal first and second heart sounds. No gallop, rub or murmur. CHEST: Clear to auscultation. No crepitation or rhonchi. ABDOMEN: Distended, soft, nontender. No guarding or rigidity. No organomegaly. Hernial orifice intact. Bowel sounds normal. NEUROLOGIC: He is heavily intoxicated; however, he was alert, oriented x 3. EXTREMITIES: She moves all extremities on request, has no gross motor or sensory deficit. He obviously has marked ataxia. LABORATORY DATA: While in the Emergency Room, he was extensively investigated. His lab work showed a white cell count 4700, hemoglobin 12.9, hematocrit 39, MCV 86 and platelet count of 156,000. His serum sodium was 142, potassium 2.9, chloride 100, bicarbonate 32, anion gap of 10, BUN 8, creatinine 0.9, estimated GFR was 86 mL per minute. His glucose was 129, calcium was 8.6, magnesium was 1.3. CK, CK-MB and troponin were normal. His total protein was 7.3, albumin 3.4. His prothrombin time was 10.4, INR of 1 and aPTT was 23. Urinalysis showed the urine was yellow, clear with a pH of 7, specific gravity of 1.010. The urine was negative for protein, glucose, ketones, blood, nitrite, bilirubin, and leukocyte esterase with 1-2 rbc's, occasional wbc's, and no bacteria. His toxic screen showed that his blood alcohol level was high at 238 mg/dL. However, he had a urine toxicology screen was negative for opiates, methadone, barbiturates, phencyclidine, amphetamine, methamphetamine, benzodiazepine, cocaine, cannabinoids. RADIOLOGICAL DATA: He has had a CT scan of the head and cervical spine, which showed that he has no intracranial hemorrhage, no midline shift. Basal cisterns are patent. Ventricles and sulci are within normal limits. No acute osseous abnormality. Orbit and paranasal sinuses unremarkable. The CT scan of the cervical spine showed degenerative changes throughout the cervical spine with osteophyte formation at the vertebral body, endplates as well as facet hypertrophy with multilevel central canal and neural foraminal stenosis. No definite acute fracture or dislocation of the cervical spine. ASSESSMENT AND PLAN: The patient was admitted for observation and treat his alcohol withdrawal protocol. We will continue with the banana bag. Continue with alcohol withdrawal protocol. Continue with all his other medications. TAN LARA MD DR: TRACY/bahman JOB#: [id number] / [id number]
[2017-12-16 15:12] VITALS: BP 161/87
[2017-12-16] MEDS: LORazepam 2 MG/ML VIAL IV PRN ×2 (16:30→20:59)
[2017-12-16 20:29] VITALS: BP 175/92
[2017-12-16 23:50] VITALS: BP 173/99
[2017-12-17] MEDS: LORazepam 2 MG/ML VIAL IV PRN (01:53)
[2017-12-17 06:11] VITALS: BP 150/82
[2017-12-17] MEDS: IV NORMAL SALINE 1,000ML 1,000 ML IV SCH (06:29)
[2017-12-17 06:34] LABS: CALCIUM 7.9 mg/dL (8.5-10.1); CREATININE 0.8 mg/dL (0.7-1.3); GFR 98.9; MAGNESIUM 1.6 mg/dL (1.8-2.4)
[2017-12-17] MEDS ORDERED: MAGNESIUM SULFATE 1GM 100 ML IV ONE (08:30)
[2017-12-17] MEDS ORDERED: POTASSIUM CHLORIDE 20 MEQ TABLET.ER. PO ONE (08:30)
[2017-12-17 10:06] VITALS: BP 166/72
--- NOTE | 2017-12-17 11:49 | RAD ---
INDICATION: Cough, congestion, intoxication. Falls. TECHNIQUE: AP portable chest radiograph was obtained. Comparison is from November. FINDINGS: The lungs are clear. The heart is not enlarged and there is no obvious heart failure. There are minimal degenerative changes in the shoulders. Leads overlie the patient. IMPRESSION: No acute thoracic findings. MTDD
[2017-12-17 15:38] VITALS: BP 153/97
[2017-12-17 19:23] VITALS: BP 166/82
[2017-12-17] MEDS ORDERED: NICOTINE 21MG PATCH. TD PRN (20:00)
[2017-12-17] MEDS: chlordiazePOXIDE HCL 25 MG CAPSULE PO PRN (20:25)
[2017-12-17 22:40] VITALS: BP 159/89
--- NOTE | 2017-12-18 03:35 | PN ---
DATE: 12/17/2017 SUBJECTIVE: The patient is resting, slightly propped up, sleeping comfortably in no apparent distress. Apparently did not require any more Ativan or any other medication for his alcohol withdrawal, has been up and about, walked with a walker with Physical Therapy without difficulty and we are basically waiting for placement at an inpatient psych unit in [place] and we are waiting for placement in a detoxification program in [place]. PHYSICAL EXAMINATION: GENERAL: When I examined him this afternoon, he looked well and was clearly in no apparent respiratory distress. VITAL SIGNS: Her heart rate was 85, blood pressure was 166/72, temperature was 98.4, respiratory rate 20, and oxygen saturation was 96%. HEAD, EYES, EARS, NOSE AND THROAT: Normocephalic, atraumatic. NECK: Supple. HEART: Showed normal first and second heart sounds with no gallop, rub or murmur. CHEST: Clear to auscultation. No crepitation or rhonchi. ABDOMEN: Distended, soft, nontender. No guarding or rigidity. No organomegaly. Hernial orifice intact. Bowel sounds normal. NEUROLOGIC: He was sleepy, but arousable. All cranial nerves intact. He moves extremities without difficulty. LABORATORY DATA: His intake was 1000, output was 700. His lab work as of yesterday showed a white cell count 4700, hemoglobin 13, hematocrit 39, MCV 86 and platelet count of 156,000. His serum sodium was 138, potassium 3, chloride 103, bicarbonate 28, anion gap of 7, BUN 5, creatinine 0.8, estimated GFR was 90 mL per minute, his glucose 134, calcium was 7.9, magnesium was 1.6, potassium. He did receive 1 gram of magnesium sulfate and 40 mEq of potassium chloride. ASSESSMENT: Alcohol intoxication, alcohol withdrawal, type 2 diabetes, hypertension, chronic obstructive pulmonary disease, posttraumatic stress disorder, bipolar disorder, anxiety, and multiple admissions for suicidal ideations. TAN LARA MD DR: TRACY/bahman JOB#: [id number] / [id number]
[2017-12-18 06:03] VITALS: BP 166/85
[2017-12-18] MEDS ORDERED: POTASSIUM CHLORIDE 20 MEQ/15 ML ORAL LIQUID. FT SCH (08:00)
[2017-12-18] MEDS ORDERED: MAGNESIUM OXIDE 400 MG TABLET PO SCH (09:00)
[2017-12-18] MEDS ORDERED: busPIRone 5 MG TABLET. PO SCH (10:00)
[2017-12-18] MEDS ORDERED: PROPRANOLOL 20 MG TABLET. PO SCH (10:00)
[2017-12-18] MEDS ORDERED: GABAPENTIN 400 MG CAPSULE. PO SCH (10:00)
[2017-12-18] MEDS ORDERED: ACETAMINOPHEN 325 MG TABLET PO PRN (10:00)
[2017-12-18] MEDS ORDERED: hydrOXYzine PAMOATE 25 MG CAPSULE PO PRN (10:00)
[2017-12-18 10:10] LABS: CREATININE 0.9 mg/dL (0.7-1.3); GFR 86.4; MAGNESIUM 1.6 mg/dL (1.8-2.4); POTASSIUM 3.4 mmol/L (3.5-5.1)
--- NOTE | 2017-12-18 14:10 | DS ---
DATE OF DISCHARGE: 12/18/2017 HOSPITAL COURSE: The patient is sitting on the edge of the bed comfortably, in no apparent distress. He was admitted again with alcohol intoxication, alcohol withdrawal, and he was continued on alcohol withdrawal protocol and he did actually very well. We have contacted his licensed master social worker at the [place] and the plan is for him to be discharged back home to continue on a daily program of what looks like a daycare as a transition to get into a detoxification program on 01/09/2018. PHYSICAL EXAMINATION: GENERAL: When I examined him this morning, he looked well and was clearly in no apparent respiratory distress. No pallor, jaundice, cyanosis or thyromegaly. No jugular venous distention. No lower limb edema. VITAL SIGNS: His heart rate was 73, blood pressure was ____, temperature was 97.9, respiratory rate was 18, and oxygen saturation was 97% on room air. The rest of clinical examination is stable, has not really changed. LABORATORY DATA: His lab works are stable. DISCHARGE MEDICATIONS: He will be discharged to continue on Tylenol 650 mg every 4 hours, buspirone 5 mg twice a day, gabapentin 800 mg twice a day, hydroxyzine pamoate 25 mg 3 times a day, metformin 500 mg for his diabetes, and propranolol 40 mg twice a day. FINAL DISCHARGE DIAGNOSES: 1. Alcohol intoxication, alcohol withdrawal syndrome. 2. Type-2 diabetes. 3. Hypertension. 4. Chronic obstructive pulmonary disease as clinically quiescent. 5. Posttraumatic stress disorder. 6. Bipolar disorder, anxiety. 7. Multiple admissions before for suicidal ideation. TAN LARA MD DR: TRACY/bahman JOB#: [id number] / [id number]
[2017-12-18] MEDS ORDERED: metFORMIN 500 MG TABLET PO SCH (17:00)
--- NOTE | 2017-12-18 17:02 | PN ---
DATE: 12/18/2017 SUBJECTIVE: The patient is sitting in the edge of the bed comfortably in no apparent distress. He is up and about, walking without any assistance or assistive devices. He denied any complaint. The nursing staff did not voice any concern and stated that he has an uneventful night. OBJECTIVE: GENERAL: When I examined him, he looked well and was clearly in no apparent respiratory distress. No pallor, jaundice, cyanosis, lymphadenopathy or thyromegaly. No jugular venous distension. No lower limb edema. VITAL SIGNS: His heart rate was 73, blood pressure was 166/85, temperature was 97.9, respiratory rate was 18 and oxygen saturation was 97% on room air. HEAD, EYES, EARS, NOSE AND THROAT: Showed normocephalic, atraumatic. NECK: Supple. HEART: Showed normal first and second heart sounds with no gallop, rub or murmur. CHEST: Clear to auscultation. No crepitation or rhonchi. ABDOMEN: Distended, soft, nontender. NEUROLOGIC: He is awake, alert, responding appropriately, continued to be somewhat tremulous, but other than that, he is actually alert, oriented and responding appropriately. He moves his extremities without difficulty, ambulates without assistance or assistive devices. LABORATORY DATA: As of yesterday showed a serum sodium of 138, potassium 3, chloride 103, bicarbonate 28, anion gap of 7, BUN 5, creatinine 0.8, estimated GFR was 99 mL per minute. His glucose was 134, calcium was 7.9, magnesium was 1.6. His CBC showed a white cell count of 4700, hemoglobin 13, hematocrit 39, MCV 86 and platelet count of 156,000 with normal manual differential. ASSESSMENT AND PLAN: 1. Alcohol intoxication, alcohol withdrawal. 2. Type 2 diabetes mellitus. 3. Hypertension. 4. Chronic obstructive pulmonary disease. 5. Posttraumatic stress disorder, bipolar disorder and anxiety, and multiple admissions for suicidal ideation. TAN LARA MD DR: TRACY/bahman JOB#: [id number] / [id number]
== END 2017-12-18 10:48 | disposition home or self-care (01) | DRG 641 ==
LOC: ER 03:05 → 1 SOUTH 04:00
PROVIDERS: ADMIT Internal Medicine; ATTEND Internal Medicine
DX: E87.6 Hypokalemia (principal); F10.239 Alcohol dependence with withdrawal, unspecified; F10.229 Alcohol dependence with intoxication, unspecified; E11.9 Type 2 diabetes mellitus without complications; F17.210 Nicotine dependence, cigarettes, uncomplicated; F31.9 Bipolar disorder, unspecified; F43.10 Post-traumatic stress disorder, unspecified; I10 Essential (primary) hypertension; J44.9 Chronic obstructive pulmonary disease, unspecified; R29.6 Repeated falls; Y90.7 Blood alcohol level of 200-239 mg/100 ml; M47.9 Spondylosis, unspecified; D64.9 Anemia, unspecified; E83.42 Hypomagnesemia; S09.90XA Unspecified injury of head, initial encounter; W18.30XA Fall on same level, unspecified, initial encounter; Y93.89 Activity, other specified; I25.2 Old myocardial infarction; Z86.73 Personal history of transient ischemic attack (TIA), and cerebral infarction without residual deficits; Z88.0 Allergy status to penicillin; Y92.89 Other specified places as the place of occurrence of the external cause; Y99.8 Other external cause status; Z87.81 Personal history of (healed) traumatic fracture
CPT/HCPCS: 36415; 70450; 71045; 72125; 80048; 80053; 80307; 81001; 82553; 83735; 83880; 84484; 85025; 85610; 85730; 93005; 96365; 96366; 99406; G0480; J2060; J3475; 99285-25; G0479; J7030